=== PATIENT | female | born 1995 | race Caucasian/White ===

== ENCOUNTER 2021-02-19 14:30 | Outpatient (REF) | payer MEDICAID, SELFPAY ==
[2021-02-19 15:41] LABS: COVID-19 Test Negative (Negative)
== END 2021-02-19 14:31 | disposition home or self-care (01) ==
LOC: HO.LAB 14:30
PROVIDERS: Visit Provider Internal Medicine
DX: Z20.822 Contact with and (suspected) exposure to COVID-19 (principal)
CPT/HCPCS: 36415; 87635; C9803

== ENCOUNTER 2021-12-01 09:07 | Emergency (ER) | payer MEDICAID, SELFPAY ==
--- NOTE | ~2021-12-01 | XR_ITS ---
EXAMINATION: XR CHEST CLINICAL INFORMATION: Wheezing COMPARISON: 06/09/2020 TECHNIQUE: 2 views of the chest were obtained. FINDINGS: No significant abnormality is noted involving the heart, lungs, mediastinum, bony thorax or soft tissues. XR/XR chest 2V IMPRESSION: Unremarkable examination.
[2021-12-01 09:09] VITALS: BP 114/57; PULSE 82; RESP 16; TEMP 36.8; O2SAT 97; BMI 45.7
[2021-12-01 09:52] LABS: Appearance Urine HAZY; Color Urine STRAW; Glucose Urine UA NEG (NEG); Leukocyte Esterase Urine 2+ (NEG); Nitrite Urine NEG (NEG); UACC Culture Trigger YES; Urine Blood 3+ (NEG); Urine Ketones NEG (NEG); Urine Protein NEG (NEG-TRACE)
[2021-12-01 09:54] LABS: UPreg QC Valid YES; Urine Pregnancy NEGATIVE (NEGATIVE)
[2021-12-01 10:00] LABS: COVID-19 Test Negative (Negative); IDNOW Serial# 9DD0AD1C
[2021-12-01 10:02] LABS: Amorphous Sediment Urine 2+ /LPF; Bacteria Urine TRACE /LPF; Squamous Epithelial Cell Urine 3+ /LPF
--- NOTE | 2021-12-01 10:54 | ED_ITS ---
HPI - General Adult General Chief complaint: General Medical Stated complaint: Chest tightness Time Seen by Provider: 12/01/21 09:22 Source: patient Mode of arrival: ambulatory Limitations: no limitations History of Present Illness HPI narrative: 26-year-old female presenting to the ED with multiple complaints which include intermittent headaches, dry cough and chest tightness/wheezing since last night along with body aches. She also reports urinary discomfort for the past 3 days and she believe she might have a UTI. She reports that she had Trichomonas approximately 2 years and she is currently sexually active and she believes she might have Trichomonas at this time due to she is having yellow colored discharge and would like to be treated for Trichomonas. She denies thoughts of having gonorrhea or chlamydia and does not want to be treated for this. She denies any thoughts of . She denies any measured fevers, chills, dizziness, neck pain/stiffness, sore throat, loss of taste or smell, ear pain, trouble swallowing or breathing, chest pain, dyspnea on exertion, orthopnea, palpitations, nausea/vomiting/diarrhea constipation, black or bloody stools, hematuria, rashes, recent travel or sick contacts or any other symptoms complaints or concerns at this time. MD complaint: Multiple complaints Related Data Previous Rx's Medication Instructions Recorded albuterol sulfate 90 mcg/actuation 1 inh INHALATION QID PRN #8.5 g 12/01/21 aerosol inhaler benzonatate 100 mg capsule 100 mg PO BID PRN #14 cap 12/01/21 cefuroxime axetil 500 mg tablet 500 mg PO BID 7 Days #14 tab 12/01/21 metronidazole 500 mg tablet 2,000 mg PO ONCE 1 Days #4 tab 12/01/21 prednisone 20 mg tablet 40 mg PO DAILY 5 Days #10 tab 12/01/21 Allergies Allergy/AdvReac Type Severity Reaction Status Date / Time No Known Allergies Allergy Unverified 07/16/20 16:21 Review of Systems Verdana 4l Review of Systems: Verdana 4d Verdana 4d Constitutional : No Weight loss, No Fever, No Chills, No Night Sweats, No Fatigue, No Malaise ENT/Mouth : No Hearing loss, No Ear Pain, No Nasal Congestion, No Sinus Pain, No Hoarseness, No sore throat, No Rhinorrhea, No Swallowing DifficultyDifficulty Eyes: No Eye Pain, No Swelling, No Redness, No Foreign Body, No Discharge, No Vision Changes Cardiovascular : No Chest Pain, No SOB, No Dyspnea on Exertion, No Orthopnea, No Edema, No Palpitations Respiratory : Positive cough with chest tightness/wheezing, No Sputum, No Smoke Exposure, No Dyspnea Gastrointestinal : No Nausea, No Vomiting, No Diarrhea, No Constipation, No abdominal Pain, No Hematochezia, No Melena Genitourinary : Positive dysuria with urinary frequency/urgency, positive yellow colored vaginal discharge, no irregular bleeding, No Hematuria, No Urinary Incontinence, No Urgency, No Flank Pain, No Urinary Flow Changes, No Hesitancy Musculoskeletal : No joint pain, No Myalgias, No Joint Swelling Skin : No Skin Lesions, No rash Neuro : No Weakness, No Numbness, No Paresthesias, No Loss of Consciousness, No Dizziness, No Headache Psych : No Anxiety/Panic, No Depression, No SI/HI/AH/VH, No Social Issues, Heme/Lymph: No Bruising, No Bleeding,No Lymphadenopathy Endocrine : No Polyuria, No Polydipsia, No Temperature Intolerance Yes all other systems are reviewed and are negative [facility] Past Medical History Attestation statement: The following information was validated with the patient. Medical History No known health problems Social History Social History Advance Directives: No Advance Directives Information Provided: No Physical Exam Verdana 4l Vital Signs: Verdana 4d Verdana 4d Vital Signs: Verdana 4d Verdana 4Bd Last Vital Signs Verdana 4d Tanning Drum Operator New 4d Tanning Drum Operator New 4d Temp 98.3 F 12/01/21 09:09 Tanning Drum Operator New 4d Pulse 82 12/01/21 09:09 Tanning Drum Operator New 4d Resp 16 12/01/21 09:09 BP 114/57 L 12/01/21 09:09 Pulse Ox 97 12/01/21 09:09 BMI result Body Mass Index 45.7 vital signs have been reviewed as normal and appeared to be correct. Blood pressure normal. Heart rate normal. Respiration rate normal. Temperature normal. Oxygen saturation normal. Appearance: Alert. Oriented X3. No acute distress. Head: Normal external exam. Normocephalic. Atraumatic. Eyes: PERRLA. EOMI. Conjunctiva and sclera normal. Eyelids normal. ENT: EAC normal. TM's Normal. Pharynx normal. Uvula midline. Moist mucous membranes. No trismus noted. No drooling noted. No muffled voice noted. Neck: Normal inspection. Neck supple. FROM. No adenopathy. Thyroid Normal. No meningeal signs. No neck mass noted. CVS: Normal heart rate and rhythm. Heart sound normal. Pulses normal throughout. No murmurs/rales/gallops. Respiratory: Decreased breath sounds with inspiratory and expiratory wheezing throughout. Otherwise painless inspiration. No rales/rhonchi noted. Chest is nontender and no accessory muscle usage noted or tracheal tugging or stridor noted. Abdomen: Soft and nontender. Bowel sounds normal in all 4 quadrants. No distention noted. No organomegaly noted. No visible injury noted. Back: No CVA tenderness. Full range of motion noted. No rashes/lesion/induration/fluctuance or signs of infection noted. Skin: Skin warm and dry. Normal skin color. Normal skin turgor. No rashes/lesions/lacerations noted. Extremities: No lower extremity edema. No calf tenderness is noted. Extremities exhibit normal range of motion. Extremities nontender. Neuro: Oriented X 3. No motor deficit. No sensory deficit. Reflexes normal. Normal steady gait. No focal neuro deficits noted. Vascular: + radial pulses/+ 2 distal pedal pulses/+2 dorsalis pedis b/l. Normal cap refill. No cyanosis noted to upper extremity nails and lower extremity toes nails. Course Course Course Narrative: 26-year-old female presenting to the ED with multiple complaints which include intermittent headaches, dry cough and chest tightness/wheezing since last night along with body aches. She also reports urinary discomfort for the past 3 days and she believe she might have a UTI. She reports that she had Trichomonas approximately 2 years and she is currently sexually active and she believes she might have Trichomonas at this time due to she is having yellow colored discharge and would like to be treated for Trichomonas. She denies thoughts of having gonorrhea or chlamydia and does not want to be treated for this. Patient negative for COVID. Chest x-ray negative for any acute processes. UA revealed +2 leukocytes and 10-14 white blood cells she does have 3 epithelial cells although patient reports dysuria therefore will treat despite having negative nitrate for UTI. She has pending Trichomonas/yeast/bacterial vaginosis although will treat for Trichomonas. Gonorrhea and chlamydia are pending patient declining treatment for that. Will DC home with instructions to return if any new or worsening symptoms to follow up with primary care provider and we will call her if any positive results. Patient understands agrees with this plan. Medical Decision Making Medical Records Medical records reviewed: Yes I reviewed the patient's medical records. Lab Data Lab results reviewed: Yes I reviewed the patient's lab results. Labs: Lab Results 12/01/21 12/01/21 12/01/21 Range/Units 09:32 09:40 09:41 Urine Color STRAW Urine Appearance HAZY Urine pH 6.0 (5.0-8.0) Ur Specific Gully 1.020 (1.005-1.025) Urine Protein NEG (NEG-TRACE) MG/DL Urine Glucose (UA) NEG (NEG) MG/DL Urine Ketones NEG (NEG) MG/DL Urine Blood 3+ H (NEG) Urine Nitrite NEG (NEG) Ur Leukocyte Esterase 2+ H (NEG) Urine RBC 5-9 H (0) /HPF Urine WBC 10-14 H (0-4) /HPF Ur Squamous Epith Cells 3+ /LPF Amorphous Sediment 2+ /LPF Urine Bacteria TRACE /LPF Urine Test NEGATIVE (NEGATIVE) COVID-19 (TRACY) Negative (Negative) COVID-19 Clin Com See Note Imaging Data Chest x-ray: Attestation: I personally reviewed and interpreted this imaging study as follows: Radiologist's impression: FINDINGS: No significant abnormality is noted involving the heart, lungs, mediastinum, bony thorax or soft tissues. XR/XR chest 2V IMPRESSION: Unremarkable examination. Discharge Plan Discharge Clinical Impression: Acute bronchitis with bronchospasm, UTI (urinary tract infection), Trichomonas vaginitis, Diffuse wheezing Patient Disposition: Home, Self-Care Instructions: Trichomoniasis (ED), Urinary Tract Infection in Women (DC), How to Use a Metered-Dose Inhaler and a Spacer (ED) Additional Instructions: You have pending lab results if any are positive you will be contacted. Return if any new or worsening symptoms follow-up with your primary care provider. Follow up with [facility] as well. Prescriptions: New metronidazole 500 mg tablet 2,000 mg PO ONCE 1 Days Qty: 4 0RF Rx Instructions: administer both doses on the same day prednisone 20 mg tablet 40 mg PO DAILY 5 Days Qty: 10 0RF cefuroxime axetil 500 mg tablet 500 mg PO BID 7 Days Qty: 14 0RF benzonatate 100 mg capsule 100 mg PO BID PRN (Reason: cough) Qty: 14 0RF albuterol sulfate 90 mcg/actuation HFA aerosol inhaler 1 inh inhalation QID PRN (Reason: shortness of breath or wheezing) Qty: 8.5 0RF Referrals: [facility] [Primary Care Provider] - 2 days
[2021-12-01] MEDS: Albuterol Sulfate 90 MCG 8 GM INHALER 4 PUFF INHALE (11:03)
[2021-12-01 12:15] LABS: CT PCR NOT DETECTED (Not Detect.); NG PCR NOT DETECTED (Not Detect.)
[2021-12-02 08:47] LABS: BV Int Neg Control Negative (Negative); BV Int Pos Control Positive (Positive)
== END 2021-12-01 11:14 | disposition home or self-care (01) ==
PROVIDERS: Physician Assistant Medical; Emergency Provider Emergency Medicine Emergency Medical Services
DX: J20.8 Acute bronchitis due to other specified organisms (principal); N39.0 Urinary tract infection, site not specified; A59.01 Trichomonal vulvovaginitis; R07.89 Other chest pain; Z20.822 Contact with and (suspected) exposure to COVID-19; Z79.899 Other long term (current) drug therapy
CPT/HCPCS: 71046; 81001; 81025; 87086; 87480; 87491; 87510; 87591; 87635; 87660; 99283; 99284

== ENCOUNTER 2022-03-15 00:22 | Emergency (ER) | payer MEDICAID, SELFPAY ==
[2022-03-15 01:20] VITALS: BP 97/63; PULSE 101; RESP 18; TEMP 37.1; O2SAT 98; BMI 47.5
[2022-03-15 01:23] VITALS: BP 117/78; PULSE 100; O2SAT 100
--- NOTE | 2022-03-15 03:24 | PC.NURSE ---
Pt started to have another episode of vomiting in the waiting room. This RN medicated with zofran.
[2022-03-15] MEDS: Ondansetron ODT 4 MG TAB.RAPDIS TRANSLINGU (03:25)
--- NOTE | 2022-03-15 04:11 | PC.NURSE ---
Pt resting well, asked for some water. Alcides STANLEY gave pt a few sips of water and told her to wait until the doctor sees her before drinking more.
--- NOTE | 2022-03-15 05:11 | ED_ITS ---
HPI - Nausea/Vomiting/Diarrhea General Chief complaint: Nausea/Vomiting/Diarrhea Stated complaint: food poisoning Time Seen by Provider: 03/15/22 04:38 Source: patient Mode of arrival: EMS History of Present Illness HPI Narrative: 26-year-old female without significant past medical history arrives via ambulance after having eating rice and developed nausea and vomiting thereafter. Otherwise, she denies any recent fever, chills, sore throat, cough, shortness of breath or palpitations. Related Data Previous Rx's Medication Instructions Recorded albuterol sulfate 90 mcg/actuation 1 inh INHALATION QID PRN #8.5 g 12/01/21 aerosol inhaler benzonatate 100 mg capsule 100 mg PO BID PRN #14 cap 12/01/21 cefuroxime axetil 500 mg tablet 500 mg PO BID 7 Days #14 tab 12/01/21 metronidazole 500 mg tablet 2,000 mg PO ONCE 1 Days #4 tab 12/01/21 prednisone 20 mg tablet 40 mg PO DAILY 5 Days #10 tab 12/01/21 ondansetron 4 mg disintegrating 4 mg PO Q6H PRN #10 tab 03/15/22 tablet Allergies Allergy/AdvReac Type Severity Reaction Status Date / Time No Known Allergies Allergy Unverified 07/16/20 16:21 Review of Systems Review of Systems: Pertinent positives and negatives as stated in HPI 10 point review of systems is otherwise negative. PMFSH Past Medical History Source: nursing notes reviewed Medical History No known health problems Social History Social History Advance Directives: No Advance Directives Information Provided: No Physical Exam Vital Signs: Vital Signs: Last Vital Signs Temp 98.8 F 03/15/22 01:20 Pulse 101 H 03/15/22 01:20 Resp 18 03/15/22 01:20 BP 97/63 03/15/22 01:20 Pulse Ox 98 03/15/22 01:20 BMI result Body Mass Index 47.5 VITAL SIGNS: Reviewed. GENERAL: Well developed, well nourished, in no acute distress. HEAD: Normocephalic/atraumatic EYES: PERRLA, EOMI EARS: Ext canals without abnormality OROPHARYNX: no oral lesions noted, posterior pharynx clear LUNGS: Normal breath sounds. No adventitious sounds or accessory muscle use. SpO2<98> CARDIOVASCULAR: Regular rate and rhythm without noted murmurs ABDOMEN: Soft, non-tender, non-distended with bowel sounds. NEUROLOGIC: Alert and oriented x 4. Course Course Course Narrative: 26-year-old female with history and clinical presentation consistent with food poisoning, patient received Zofran and p.o. challenge. On re-evaluation the child is noted to tolerate fluids well and is discharged home in stable condition. Discharge Plan Discharge Clinical Impression: Food poisoning Patient Disposition: Home, Self-Care Instructions: Food Poisoning (ED) Additional Instructions: 1. Increase fluid hydration, especially with water. 2. You have been provided with a prescription for controlling nausea. 3. Follow-up with primary care provider next 2-3 days for re-evaluation. Return to the ER for worsening symptoms. Prescriptions: New ondansetron 4 mg tablet,disintegrating 4 mg PO Q6H PRN (Reason: nausea and vomiting) Qty: 10 0RF No Action metronidazole 500 mg tablet 2,000 mg PO ONCE 1 Days Qty: 4 0RF Rx Instructions: administer both doses on the same day prednisone 20 mg tablet 40 mg PO DAILY 5 Days Qty: 10 0RF cefuroxime axetil 500 mg tablet 500 mg PO BID 7 Days Qty: 14 0RF benzonatate 100 mg capsule 100 mg PO BID PRN (Reason: cough) Qty: 14 0RF albuterol sulfate 90 mcg/actuation HFA aerosol inhaler 1 inh inhalation QID PRN (Reason: shortness of breath or wheezing) Qty: 8.5 0RF Referrals: [facility] [Primary Care Provider] - Stand Alone Forms: Work/School Release
[2022-03-15 06:00] VITALS: BP 103/60; PULSE 88; RESP 16; TEMP 36.8; O2SAT 96
== END 2022-03-15 06:16 | disposition home or self-care (01) ==
PROVIDERS: Emergency Provider Student in an Organized Health Care Education/Training Program
DX: A05.9 Bacterial foodborne intoxication, unspecified (principal); R11.2 Nausea with vomiting, unspecified; Z79.899 Other long term (current) drug therapy
CPT/HCPCS: 99282; 99283

== ENCOUNTER 2023-02-19 22:38 | Emergency (ER) | payer MEDICAID, SELFPAY ==
--- NOTE | 2023-02-19 | ECG_ITS ---
Test Reason : CHEST PAIN Blood Pressure : / mmHG Vent. Rate : 073 BPM Atrial Rate : 073 BPM P-R Int : 134 ms QRS Dur : 072 ms QT Int : 386 ms P-R-T Axes : 035 019 025 degrees QTc Int : 425 ms Normal sinus rhythm with sinus arrhythmia Normal ECG When compared with ECG of 09-JUN-2020 15:06, No significant change was found Referred By: Generic ED Physician Electronically Signed By:Wes Olivia
[2023-02-19 22:41] VITALS: BP 110/52; PULSE 75; RESP 18; TEMP 36.5; O2SAT 100; BMI 49.4
[2023-02-19 23:03] LABS: MANUAL DIFF FLAG NO
[2023-02-19 23:05] LABS: Basophils Absolute Auto 0.1 X10*3/uL (0.0-0.2); Basophils Percent Auto 0.6 % (0-2); Eosinophils Percent Auto 0.2 % (0-4); Hemoglobin 13.8 g/dl (12.0-16.0); Imm Gran Abs Auto 0.03 X10*3/uL (0.00-0.03); Imm Gran Pct Auto 0.3 % (0.0-0.4); Lymphocytes Absolute Auto 1.7 X10*3/uL (1.2-4.9); Lymphocytes Percent Auto 17.7 % (20-40); Mean Corpuscular HGB Conc 32.9 g/dl (31.0-35.0); Mean Corpuscular Hemoglobin 28.3 pg (27.0-33.0); Mean Corpuscular Volume 86.1 fL (80.0-98.0); Mean Platelet Volume 9.1 fL (9.4-12.3); Monocytes Absolute Auto 0.5 X10*3/uL (0.1-1.2); Monocytes Percent Auto 5.2 % (2-11); Neutrophils Absolute Auto 7.4 x10*3/uL (2.0-8.3); Platelet Count 330 X10*3/uL (160-400); Red Blood Count 4.88 X10*6/uL (4.20-5.50); Red Cell Distribution Width 12.8 % (11.0-16.0); White Blood Count 9.7 X10*3/uL (4.8-10.8)
[2023-02-19 23:20] LABS: Alanine Aminotransferase 16 U/L (0-31); Albumin Level 3.7 g/dL (3.5-5.0); Alkaline Phosphatase 68 U/L (39-117); Anion Gap 16 (12-20); Aspartate Amino Transferase 21 U/L (5-31); Bilirubin Total 0.5 mg/dL (0.0-1.0); Blood Urea Nitrogen 9 mg/dL (9-16); Calcium 8.7 mg/dL (8.4-10.2); Carbon Dioxide 22 mmol/L (22-29); Chloride 109 mmol/L (96-108); Estimated Glomerular Filt Rate > 60; Glucose Random 84 mg/dL (60-115); Potassium 3.7 mmol/L (3.3-5.1); Sodium 143 mmol/L (135-145); Total Protein 7.2 g/dL (6.5-8.0)
[2023-02-19 23:28] LABS: Troponin-I High Sensitivity < 2.7 ng/L (<3.5-17.0)
[2023-02-19 23:40] LABS: Influenza A PCR NEGATIVE (Negative); Influenza B PCR NEGATIVE (Negative); Resp Syncy Virus RNA Qual PCR NEGATIVE (Negative); SARS COV2 PCR INHOUSE NEGATIVE (Negative)
--- NOTE | 2023-02-20 00:40 | ED_ITS ---
HPI - Nausea/Vomiting/Diarrhea General Chief complaint: Nausea/Vomiting/Diarrhea Stated complaint: chest pain/vomiting Time Seen by Provider: 02/20/23 00:33 Source: patient Mode of arrival: ambulatory Limitations: no limitations History of Present Illness HPI Narrative: Patient comes to emergency room complaining of 3 days of nausea vomiting, no diarrhea or abdominal pain. Patient states that her boyfriend had similar symptoms. Patient denies fever, complaining of chills, no URI or UTI symptoms. Related Data Previous Rx's Medication Instructions Recorded ondansetron 4 mg disintegrating 4 mg PO Q6H PRN nausea and 02/20/23 tablet vomiting #14 tabs Allergies Allergy/AdvReac Type Severity Reaction Status Date / Time No Known Allergies Allergy Verified 02/19/23 22:41 Review of Systems Review of Systems: Constitutional : No Weight loss, No Fever, No Chills, No Night Sweats, No Fatigue, No Malaise ENT/Mouth : No Hearing loss, No Ear Pain, No Nasal Congestion, No Sinus Pain, No Hoarseness, No sore throat, No Rhinorrhea, No Swallowing Difficulty Eyes: No Eye Pain, No Swelling, No Redness, No Foreign Body, No Discharge, No Vision Changes Cardiovascular : No Chest Pain, No SOB, No Dyspnea on Exertion, No Orthopnea, No Edema, No Palpitations Respiratory : No Cough, No Sputum, No Wheezing, No Smoke Exposure, No Dyspnea Gastrointestinal : Complaining of nausea and vomiting, No Diarrhea, No Constipation, No abdominal Pain, No Hematochezia, No Melena Genitourinary : no irregular bleeding, No Dysuria, No Urinary Frequency, No Hematuria, No Urinary Incontinence, No Urgency, No Flank Pain, No Urinary Flow Changes, No Hesitancy Musculoskeletal : No joint pain, No Myalgias, No Joint Swelling Skin : No Skin Lesions, No rash Neuro : No Weakness, No Numbness, No Paresthesias, No Loss of Consciousness, No Dizziness, No Headache Psych : No Anxiety/Panic, No Depression, No SI/HI/AH/VH, No Social Issues, Heme/Lymph: No Bruising, No Bleeding,No Lymphadenopathy Endocrine : No Polyuria, No Polydipsia, No Temperature Intolerance PMFSH Past Medical History Medical History No known health problems Family History Family History (Updated 06/03/22 @ 09:13 by Rachel Cabrera CMA) Mother Vertigo Father No problems noted. Daughter No problems noted. Daughter No problems noted. Son No problems noted. Social History Social History (Updated 06/03/22 @ 09:13 by Rachel Cabrera CMA) Alcohol intake: current Alcohol intake frequency: holidays/special occasions only Patient Tobacco Use Status: Never used Tobacco Advance Directives: No Advance Directives Information Provided: Yes Physical Exam Vital Signs: Vital Signs: Last Vital Signs Temp 97.7 F 02/19/23 22:41 Pulse 75 02/19/23 22:41 Resp 18 02/19/23 22:41 BP 110/52 L 02/19/23 22:41 Pulse Ox 100 02/19/23 22:41 O2 Del Method Room Air 02/19/23 22:41 BMI result Body Mass Index 49.4 Const: Other: Appearance: Alert. Oriented X3. No acute distress. Eyes: Pupils equal, round and reactive to light. ENT: Pharynx normal. Neck: Normal inspection. Neck supple. No lymph nodes noted. No crepitus CVS: Normal heart rate and rhythm. Pulses normal. Normal S1 and S2 Respiratory: No respiratory distress. Breath sounds normal. No Wheezing. No rales Abdomen: Soft and nontender. No rigidity. No distention. Skin: Skin warm and dry. Normal skin color. Normal skin turgor. Extremities: No lower extremity edema. No Lacerations. No Rash Neuro: Oriented X 3. No motor deficit. No sensory deficit. Moving all extremities. No slurred speech. CN 2 through 12 grossly intact Psych: calm, cooperative, normal affect Medical Decision Making Medical Decision Making [facility] Narrative: -CBC and chemistry did not show any acute abnormalities. -patient is eating IV fluids, Zofran and Pepcid. Differential Diagnosis Differential Diagnoses: The differential diagnosis associated with the presentation includes (Gastritis, gastroenteritis, peptic ulcer disease) Lab Data [facility] Lab Attestation statement: I reviewed the patient's lab results. 02/19/23 22:54 02/19/23 22:54 Labs: Lab Results 02/19/23 02/19/23 02/19/23 Range/Units 22:54 22:54 22:54 WBC 9.7 (4.8-10.8) X10*3/uL RBC 4.88 (4.20-5.50) X10*6/uL Hgb 13.8 (12.0-16.0) g/dl Hct 42.0 (37.0-47.0) % MCV 86.1 (80.0-98.0) fL MCH 28.3 (27.0-33.0) pg MCHC 32.9 (31.0-35.0) g/dl RDW 12.8 (11.0-16.0) % Plt Count 330 (160-400) X10*3/uL MPV 9.1 L (9.4-12.3) fL Immature Gran % (Auto) 0.3 (0.0-0.4) % Neut % (Auto) 76.0 H (45-73) % Lymph % (Auto) 17.7 L (20-40) % Millard % (Auto) 5.2 (2-11) % Eos % (Auto) 0.2 (0-4) % Baso % (Auto) 0.6 (0-2) % Lymph # (Auto) 1.7 (1.2-4.9) X10*3/uL Millard # (Auto) 0.5 (0.1-1.2) X10*3/uL Eos # (Auto) 0.0 (0.0-0.4) X10*3/uL Baso # (Auto) 0.1 (0.0-0.2) X10*3/uL Abs Immat Gran (auto) 0.03 (0.00-0.03) X10*3/uL Absolute Neuts (auto) 7.4 (2.0-8.3) x10*3/uL Absolute Nucleated RBC 0.000 (0.0-0.012) X10*3/uL Nucleated RBC % (auto) 0.0 (0.0-0.2) /100WBC Sodium 143 (135-145) mmol/L Potassium 3.7 (3.3-5.1) mmol/L Chloride 109 H (96-108) mmol/L Carbon Dioxide 22 (22-29) mmol/L Anion Gap 16 (12-20) BUN 9 (9-16) mg/dL Creatinine 0.68 (0.5-1.4) mg/dL Estim Creat Clear Calc 155.0 Estimated GFR > 60 Random Glucose 84 (60-115) mg/dL Calcium 8.7 (8.4-10.2) mg/dL Total Bilirubin 0.5 (0.0-1.0) mg/dL AST 21 (5-31) U/L ALT 16 (0-31) U/L Alkaline Phosphatase 68 (39-117) U/L Troponin I High Sens < 2.7 (<3.5-17.0) ng/L Total Protein 7.2 (6.5-8.0) g/dL Albumin 3.7 (3.5-5.0) g/dL Influenza Type A (PCR) (Negative) Influenza Type B (PCR) (Negative) RSV RNA Qual (PCR) (Negative) SARS-CoV-2 RNA (RT-PCR) (Negative) 02/19/23 Range/Units 22:54 WBC (4.8-10.8) X10*3/uL RBC (4.20-5.50) X10*6/uL Hgb (12.0-16.0) g/dl Hct (37.0-47.0) % MCV (80.0-98.0) fL MCH (27.0-33.0) pg MCHC (31.0-35.0) g/dl RDW (11.0-16.0) % Plt Count (160-400) X10*3/uL MPV (9.4-12.3) fL Immature Gran % (Auto) (0.0-0.4) % Neut % (Auto) (45-73) % Lymph % (Auto) (20-40) % Millard % (Auto) (2-11) % Eos % (Auto) (0-4) % Baso % (Auto) (0-2) % Lymph # (Auto) (1.2-4.9) X10*3/uL Millard # (Auto) (0.1-1.2) X10*3/uL Eos # (Auto) (0.0-0.4) X10*3/uL Baso # (Auto) (0.0-0.2) X10*3/uL Abs Immat Gran (auto) (0.00-0.03) X10*3/uL Absolute Neuts (auto) (2.0-8.3) x10*3/uL Absolute Nucleated RBC (0.0-0.012) X10*3/uL Nucleated RBC % (auto) (0.0-0.2) /100WBC Sodium (135-145) mmol/L Potassium (3.3-5.1) mmol/L Chloride (96-108) mmol/L Carbon Dioxide (22-29) mmol/L Anion Gap (12-20) BUN (9-16) mg/dL Creatinine (0.5-1.4) mg/dL Estim Creat Clear Calc Estimated GFR Random Glucose (60-115) mg/dL Calcium (8.4-10.2) mg/dL Total Bilirubin (0.0-1.0) mg/dL AST (5-31) U/L ALT (0-31) U/L Alkaline Phosphatase (39-117) U/L Troponin I High Sens (<3.5-17.0) ng/L Total Protein (6.5-8.0) g/dL Albumin (3.5-5.0) g/dL Influenza Type A (PCR) NEGATIVE (Negative) Influenza Type B (PCR) NEGATIVE (Negative) RSV RNA Qual (PCR) NEGATIVE (Negative) SARS-CoV-2 RNA (RT-PCR) NEGATIVE (Negative) Discharge Plan Discharge Clinical Impression: Nausea & vomiting Patient Disposition: Home, Self-Care Instructions: Acute Nausea and Vomiting (ED) Additional Instructions: Please follow-up with your primary care physician tomorrow. If you have any worsening or new symptoms, please return to the emergency room or call 911 Prescriptions: New ondansetron 4 mg tablet,disintegrating 4 mg PO Q6H PRN (Reason: nausea and vomiting) Qty: 14 0RF
[2023-02-20 00:53] LABS: Lipase 25 U/L (8-78)
[2023-02-20 00:55] LABS: HCG Quantitative < 2 mIU/mL
[2023-02-20] MEDS: Famotidine/PF 20 MG/2 ML VIAL IVPUSH (01:04)
[2023-02-20] MEDS: ondansetron HCL 4 MG/2 ML VIAL IVPUSH (01:04)
[2023-02-20] MEDS: 0.9 % Sodium Chloride 1,000 ML 999 ML IVCONT (01:04)
[2023-02-20 01:19] VITALS: BP 99/58; PULSE 62; RESP 18; O2SAT 97
== END 2023-02-20 02:03 | disposition home or self-care (01) ==
PROVIDERS: Emergency Provider Emergency Medicine; PCP Nurse Practitioner
DX: R11.2 Nausea with vomiting, unspecified (principal); Z20.822 Contact with and (suspected) exposure to COVID-19; Z20.828 Contact with and (suspected) exposure to other viral communicable diseases
CPT/HCPCS: 0241U; 36415; 80053; 83690; 84484; 84702; 85025; 93005; 96374; 96375; 99284; 99285; J2405

== ENCOUNTER 2023-06-02 09:06 | Outpatient (REF) | payer MEDICAID, SELFPAY ==
[2023-06-05 16:19] LABS: TS Negative Control Passed; TS Panel A 0; TS Panel B 0; TS Positive Control Passed; TSpotTB Negative (Negative)
== END 2023-06-02 09:07 | disposition home or self-care (01) ==
LOC: HO.HHCL 09:06
PROVIDERS: Visit Provider Nurse Practitioner Family
DX: Z00.00 Encounter for general adult medical examination without abnormal findings (principal); Z11.1 Encounter for screening for respiratory tuberculosis
CPT/HCPCS: 36415; 86481

== ENCOUNTER 2023-06-22 14:51 | Outpatient (REF) | payer MEDICAID, SELFPAY ==
[2023-06-22 16:20] LABS: Estimated Average Glucose 97 mg/dL
[2023-06-22 16:25] LABS: Alanine Aminotransferase 13 U/L (0-31); Albumin Level 3.5 g/dL (3.5-5.0); Alkaline Phosphatase 58 U/L (39-117); Anion Gap 9 (12-20); Aspartate Amino Transferase 17 U/L (5-31); Bilirubin Total 0.3 mg/dL (0.0-1.0); Blood Urea Nitrogen 12 mg/dL (9-16); Calcium 8.9 mg/dL (8.4-10.2); Carbon Dioxide 24 mmol/L (22-29); Chloride 109 mmol/L (96-108); Cholesterol 175 mg/dL (<200); Estimated Glomerular Filt Rate > 60; Glucose Random 83 mg/dL (60-115); HDL Cholesterol 35 mg/dL (>40); LDL Cholesterol Calculated 117 mg/dL (<100); Potassium 3.9 mmol/L (3.3-5.1); Sodium 138 mmol/L (135-145); Total Protein 7.2 g/dL (6.5-8.0); Triglycerides 119 mg/dL (<150)
== END 2023-06-22 14:52 | disposition home or self-care (01) ==
LOC: HO.HHCL 14:51
PROVIDERS: Visit Provider Nurse Practitioner Family
DX: Z00.00 Encounter for general adult medical examination without abnormal findings (principal); Z68.43 Body mass index [BMI] 50.0-59.9, adult
CPT/HCPCS: 36415; 80053; 80061; 83036

== ENCOUNTER 2023-07-17 18:51 | Outpatient (REF) | payer MEDICAID, SELFPAY ==
[2023-07-17 19:39] LABS: Influenza A PCR NEGATIVE (Negative); Influenza B PCR NEGATIVE (Negative); Resp Syncy Virus RNA Qual PCR NEGATIVE (Negative); SARS COV2 PCR INHOUSE NEGATIVE (Negative)
== END 2023-07-17 18:52 | disposition home or self-care (01) ==
LOC: HO.HHCLNP 18:51
PROVIDERS: Visit Provider Internal Medicine
DX: J06.9 Acute upper respiratory infection, unspecified (principal); Z20.822 Contact with and (suspected) exposure to COVID-19
CPT/HCPCS: 0241U

== ENCOUNTER 2023-08-02 18:02 | Outpatient (REF) | payer MEDICAID, SELFPAY ==
[2023-08-02 19:09] LABS: Influenza A PCR NEGATIVE (Negative); Influenza B PCR NEGATIVE (Negative); Resp Syncy Virus RNA Qual PCR NEGATIVE (Negative); SARS COV2 PCR INHOUSE NEGATIVE (Negative)
== END 2023-08-02 18:03 | disposition home or self-care (01) ==
LOC: HO.HHCLNP 18:02
PROVIDERS: Visit Provider Internal Medicine Geriatric Medicine
DX: J06.9 Acute upper respiratory infection, unspecified (principal)
CPT/HCPCS: 0241U; 87070

== ENCOUNTER 2023-12-07 09:59 | Outpatient (REF) | payer MEDICAID, SELFPAY ==
[2023-12-07 12:26] LABS: TSH reflex Free T4 1.11 uIU/mL (0.32-4.0)
[2023-12-07 18:18] LABS: CT PCR NOT DETECTED (Not Detect.); NG PCR NOT DETECTED (Not Detect.)
== END 2023-12-07 10:00 | disposition home or self-care (01) ==
LOC: HO.HHCL 09:59
PROVIDERS: Visit Provider Advanced Practice Midwife
DX: Z11.3 Encounter for screening for infections with a predominantly sexual mode of transmission (principal); N92.6 Irregular menstruation, unspecified
CPT/HCPCS: 0353U; 36415; 84443

== ENCOUNTER 2024-01-03 17:57 | Outpatient (REF) | payer MEDICAID, SELFPAY ==
[2024-01-04 16:44] LABS: C. trachomatis RNA TMA NOT DETECTED (NOT DETECTED); N. gonorrhoeae RNA TMA NOT DETECTED (NOT DETECTED)
== END 2024-01-03 17:58 | disposition home or self-care (01) ==
LOC: HO.HHCLNP 17:57
PROVIDERS: Visit Provider Nurse Practitioner Family
DX: N89.8 Other specified noninflammatory disorders of vagina (principal)
CPT/HCPCS: 36415; 81513; 87491; 87591

== ENCOUNTER 2024-06-25 08:40 | Outpatient (REF) | payer MEDICAID, SELFPAY ==
[2024-06-25 11:28] LABS: MANUAL DIFF FLAG NO
[2024-06-25 11:34] LABS: Basophils Absolute Auto 0.1 X10*3/uL (0.0-0.2); Basophils Percent Auto 0.9 % (0-2); Eosinophils Absolute Auto 0.3 X10*3/uL (0.0-0.4); Hematocrit 38.5 % (37.0-47.0); Hemoglobin 12.8 g/dl (12.0-16.0); Imm Gran Abs Auto 0.01 X10*3/uL (0.00-0.03); Imm Gran Pct Auto 0.2 % (0.0-0.4); Lymphocytes Absolute Auto 2.2 X10*3/uL (1.2-4.9); Lymphocytes Percent Auto 38.6 % (20-40); Mean Corpuscular HGB Conc 33.2 g/dl (31.0-35.0); Mean Corpuscular Hemoglobin 29.1 pg (27.0-33.0); Mean Corpuscular Volume 87.5 fL (80.0-98.0); Mean Platelet Volume 9.7 fL (9.4-12.3); Monocytes Absolute Auto 0.6 X10*3/uL (0.1-1.2); Monocytes Percent Auto 9.6 % (2-11); Neutrophils Absolute Auto 2.6 x10*3/uL (2.0-8.3); Neutrophils Percent Auto 45.7 % (45-73); Platelet Count 286 X10*3/uL (160-400); Red Cell Distribution Width 12.7 % (11.0-16.0); White Blood Count 5.8 X10*3/uL (4.8-10.8)
[2024-06-25 12:05] LABS: Alanine Aminotransferase 15 U/L (0-31); Albumin Level 3.4 g/dL (3.5-5.0); Alkaline Phosphatase 61 U/L (39-117); Anion Gap 10 (12-20); Aspartate Amino Transferase 22 U/L (5-31); Bilirubin Total 0.4 mg/dL (0.0-1.0); Blood Urea Nitrogen 9 mg/dL (9-16); Calcium 8.8 mg/dL (8.4-10.2); Carbon Dioxide 24 mmol/L (22-29); Chloride 109 mmol/L (96-108); Cholesterol 177 mg/dL (<200); Estimated Glomerular Filt Rate > 60; Glucose Random 82 mg/dL (60-115); HDL Cholesterol 35 mg/dL (>40); LDL Cholesterol Calculated 126 mg/dL (<100); Potassium 3.6 mmol/L (3.3-5.1); Sodium 139 mmol/L (135-145); Total Protein 6.9 g/dL (6.5-8.0); Triglycerides 80 mg/dL (<150)
[2024-06-25 12:08] LABS: Thyroid Stimulating Hormone 0.89 uIU/mL (0.32-4.0)
[2024-06-26 22:09] LABS: RPR Rapid Plasma Reagin NON-REACTIVE (NON-REACTIVE)
[2024-06-28 17:39] LABS: HIV RNA PCR Qn Copies Not Detected Copies/mL; HIV RNA PCR Qn Log Copies Not Detected Log cps/mL
== END 2024-06-25 08:41 | disposition home or self-care (01) ==
LOC: HO.HHCL 08:40
PROVIDERS: Visit Provider Nurse Practitioner Family
DX: Z00.00 Encounter for general adult medical examination without abnormal findings (principal); R42 Dizziness and giddiness; E66.01 Morbid (severe) obesity due to excess calories
CPT/HCPCS: 36415; 80053; 80061; 84443; 85025; 86592; 87536; 87900

== ENCOUNTER 2024-11-01 11:34 | Outpatient (REF) | payer MEDICAID, SELFPAY ==
[2024-11-01 13:22] LABS: Estimated Average Glucose 100 mg/dL; Hemoglobin A1C 108.9846 umol/L; Hemoglobin A1c % 5.1 % (<6.0); Total Hemoglobin (HGBA1C) 3407.2844 umol/L
[2024-11-01 13:43] LABS: Alanine Aminotransferase 12 U/L (0-31); Albumin Level 3.5 g/dL (3.5-5.0); Alkaline Phosphatase 56 U/L (39-117); Anion Gap 7 (12-20); Aspartate Amino Transferase 25 U/L (5-31); Bilirubin Total 0.3 mg/dL (0.0-1.0); Blood Urea Nitrogen 10 mg/dL (9-16); Calcium 8.4 mg/dL (8.4-10.2); Carbon Dioxide 23 mmol/L (22-29); Chloride 111 mmol/L (96-108); Estimated Glomerular Filt Rate > 60; Glucose Random 86 mg/dL (60-115); Potassium 4.1 mmol/L (3.3-5.1); Sodium 137 mmol/L (135-145); Total Protein 7.2 g/dL (6.5-8.0)
[2024-11-02 04:26] LABS: HIV AB/AG Nonreactive (Nonreactive); HIV Num 1 0.05 S/CO (0.00-0.99); ~HepC Num1 0.24 S/CO (0.00-0.79); ~Hepatitis C Antibody Nonreactive (Nonreactive)
== END 2024-11-01 11:35 | disposition home or self-care (01) ==
LOC: HO.HHCL 11:34
PROVIDERS: Visit Provider Nurse Practitioner
DX: E66.01 Morbid (severe) obesity due to excess calories (principal)
CPT/HCPCS: 36415; 80053; 83036; 86803; 87389

== ENCOUNTER 2025-05-01 15:26 | Outpatient (REF) | payer MEDICAID, SELFPAY ==
--- OUTSIDE RECORDS SUMMARY | 2025-05-01 15:28 | XMS_ITS | Encounter Summary ---
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 Name Role Phone Unavailable Primary Care Provider Unavailabl e Encounter Details Date Type Department Care Team (Late st Contact Info) Description 05/09/2022 Dental Inter[facility] [address] [place] [id number] Mago Harrell, MICHELLE [address] [place] [address] Social History Tobacco Use Types Packs/Day Years Used Date Smoking Tobacco: Never Assessed Social Connections Answer Date Recorded Social Connections and Isolation 0 05/09/2022 Financial Resource Strain Answer Date R ecorded Financial Resource Strain 0 2021 Stress Answer Date Recorded Stress 0 05/09/2022 Physical Activity Answer Date Recorded Physical Activity 0 05/09/2022 Food Insecurity Answer Date Recorded Food 0 05/09/2022 Transportation Needs Answer Date Record ed Transportation 0 05/09/2022 Housing Stability Answer Date Recorded Housing 0 05/09/2022 Safety and Environment Answer Date Son rded Safety 0 05/09/2022 Utilities Answer Date Recorded Utilities 0 05/09/2022 Employment Answer Date Recorded Employment 0 05/09/2022 Comments Unknown Sex and Gender Information Value Date Recorded Sex Assigned at Female 05/27/2024 10:17 AM PDT Legal Sex Female 1:08 PM PDT Gender Identity Female 05/27/2024 10:17 AM PDT Sexual Orientation Straight 05/27/2024 10 :17 AM PDT documented as of this encounter Plan of Treatment Not on file documented as of this encounter Visit Diagnoses Not on filedocumented in this encounter
--- OUTSIDE RECORDS SUMMARY | 2025-05-01 15:28 | XMS_ITS | Clinical Summary ---
Author Organization [facility] Address [address] [place] [address] Phone Care Team Providers Care Top Lift Compresser Name Role Phone Unavailable Primary Care Provider Unavailabl e Social History Tobacco Use Types Packs/Day Years Used Date Smoking Tobacco: Never Assessed Comments Unknown Sex and Gender Information Value Date Recorded Sex Assigned at Not on file Legal Sex Female 1:51 PM EST Gender Identity Not on file Sexual Orientation Not on file Plan of Treatment Health Maintenance Due Date Last Done Comments DTaP,Tdap,and Td Vaccines (1 - Tdap) 2014 Hepatitis B Vaccines (1 of 3 - 19+ 3-dose series) 2014 Cervical Cancer Screening: P ap Smear 2016 COVID-19 Vaccine ( - 2023-2 5 season) 2024 Influenza Vaccine (#1) 2025 HIB Vaccines Aged Out No longer eligi ble based on patient's age to complete this topic HPV Vaccines Aged Out No longer eligi ble based on patient's age to complete this topic Hepatitis A Vaccines Aged Out No long er eligible based on patient's age to complete this topic IPV Vaccines Aged Out No longer eligi ble based on patient's age to complete this topic MMR Vaccines Aged Out No longer eligi ble based on patient's age to complete this topic Meningococcal ACWY Vaccine Aged Out N o longer eligible based on patient's age to complete this topic Meningococcal B Vaccine Aged Out No l onger eligible based on patient's age to complete this topic Pneumococcal Vaccine: Pediat rics (0 to 5 Years) and At-Risk Patients (6 to 64 Years) Aged Out No longer eligible b ased on patient's age to complete this topic RSV Immunization Patients Un dorys 20 months Aged Out No longer eligible b ased on patient's age to complete this topic Varicella Vaccines Aged Out No longer eligible based on patient's age to complete this topic
--- OUTSIDE RECORDS SUMMARY | 2025-05-01 15:28 | XMS_ITS | Encounter Summary ---
Author Organization [facility] Address [address] [place] [address] Phone Care Team Providers Care Track Laying Equipment Operator Name Role Phone Unavailable Primary Care Provider Unavailabl e Encounter Details Date Type Department Care Team (Late st Contact Info) Description 06/15/2017 Conversion Encounter [facility] - [address] [address] Social History Tobacco Use Types Packs/Day Years Used Date Smoking Tobacco: Never Assessed Comments Unknown Sex and Gender Information Value Date Recorded Sex Assigned at Not on file Legal Sex Female 4:16 PM EDT Gender Identity Not on file Sexual Orientation Not on file documented as of this encounter Plan of Treatment Not on file documented as of this encounter Visit Diagnoses Not on filedocumented in this encounter
--- OUTSIDE RECORDS SUMMARY | 2025-05-01 15:28 | XMS_ITS | Encounter Summary ---
Author Organization [facility] Address [address] [facility] 7t [place] [address] Care Team Providers Care Preschool Teacher Aide Name Role Phone Nneka Velazquez NP Primary Care Provider [phone] Encounter Details Date Type Department Care Team ([facility] st Contact Info) Description 01/20/2025 Orders Only [facility] [address] [place] [address] Nneka Velazquez NP [address] [place] [address] Morbid obesity (CMS/HCC) (Primary Dx) Social History Tobacco Use Types Packs/Day Years Used Date Smoking Tobacco: Never Passive Smoke Exposure: Never Smokeless Tobacco: Never Alcohol Use Standard Drinks/Week Comments Yes 0 (1 standard drink = 0.6 oz pur e alcohol) last drink was 6 months ago Depression Answer Date Recorded Patient Health Questionnaire-9 Score 3 11/01/2024 Patient Health Questionnaire-9 Score 3 11/01/2024 Last PHQ-9: Questionnaire Data Not on file 0 11/01/2024 Housing Stability Answer Date Recorded What is your housing situation today? I have [place] 09/04/[address] you li ve. Do you have problems with any of the following? None of the above 09/04/2023 Food Insecurity Answer Date Recorded Within the past 12 months, y ou worried that your food would run out before you got money to buy more: Never True 09/04/2023 Within the past 12 months,th e food you bought just didn't last and you didn't have enough money to get more: Never True 03/2023 Transportation Answer Date Recorded In the past 12 months, has l ack of transportation kept you from medical appts, meetings, work or from getting things needed for daily living? No 09/04/2023 Utilities Answer Date Recorded In the past 12 months, has t he electric, gas, oil or water company threatened to shut off services in your home? No 09/04/2023 Depression Answer Date Recorded Patient Health Questionnaire-2 Score 0 11/01/2024 Internet Access Answer Date Recorded Internet Access Q1 Yes 06/28/2024 Internet Access Q2 Not on file 06/28/2024 Comments No Sex and Gender Information Value Date Recorded Sex Assigned at Female 08/29/2022 10:15 AM EDT Legal Sex Female 10:15 AM EDT Gender Identity Female 08/29/2022 10:15 AM EDT Sexual Orientation Straight 08/29/2022 10 :15 AM EDT documented as of this encounter Plan of Treatment Upcoming Encounters Date Type Department Care Team (Late st Contact Info) Description 06/04/2025 9:45 AM EDT Office Visit [facility] [address] [place] [address] Nneka Velazquez NP [address] [place] [address] documented as of this encounter Visit Diagnoses Diagnosis Morbid obesity (CMS/HCC)- Primary Morbid obesity documented in this encounter Additional Health Concerns Assessment Noted Time PHQ-9 Depression Total Score: 3 11/01/19 25 11:27 AM EST documented as of this encounter Care Teams Preschool Teacher Aide Relationship Specialty Start Date End Date Nneka Velazquez NP [address] [place] [address] PCP - General Family Medicine 07/02/24 documented as of this encounter
[2025-05-05 01:27] LABS: TS Negative Control Passed; TS Panel A 0; TS Panel B 0; TS Positive Control Passed; TSpotTB Negative (Negative)
== END 2025-05-01 15:27 | disposition home or self-care (01) ==
LOC: HO.HHCL 15:26
PROVIDERS: PCP Nurse Practitioner; Visit Provider Nurse Practitioner
DX: Z11.1 Encounter for screening for respiratory tuberculosis (principal)
CPT/HCPCS: 36415; 86481

== ENCOUNTER 2025-06-04 11:11 | Outpatient (REF) | payer MEDICAID, SELFPAY ==
--- OUTSIDE RECORDS SUMMARY | 2025-06-04 12:00 | XMS_ITS | Clinical Summary ---
Author Organization [facility] Address [address] [place] [address] Phone Care Team Providers Care Punch Press Feeder Name Role Phone Unavailable Primary Care Provider [...] Vaccine ( - 2023-2 5 season) 2024 Depression Screening 10/30/2024 Influenza Vaccine (#1) 2025 HIB Vaccines Aged [...] 5 Years) and At-Risk Patients (6 to 49 Years) Aged Out No longer eligible b ased on patient's age to complete this topic RSV Immunization Patients Un dorys 20 months Aged Out No longer eligible b ased on patient's age to complete this topic Varicella Vaccines Aged Out No longer eligible based on patient's age to complete this topic
--- OUTSIDE RECORDS SUMMARY | 2025-06-04 12:00 | XMS_ITS | Encounter Summary ---
Author Organization [facility] Address [address] [place] [address] Care Team Providers Care Academic Affairs Dean Name Role Phone Unavailable Primary Care Provider Unavailabl e Encounter Details Date Type Department Care Team (Late st Contact Info) Description 05/09/2022 Dental Interim Note [facility] [address] [place] [phone] Mago Harrell, MICHELLE [address] [place] [address] Social History Tobacco Use Types Packs/Day Years [...]
--- OUTSIDE RECORDS SUMMARY | 2025-06-04 12:00 | XMS_ITS | Encounter Summary ---
Author Organization [facility] Address [address] [facility] 7t [place] [address] Care Team Providers Care Assembler Trim Name Role Phone Nneka Velazquez NP Primary Care Provider [phone] Encounter Details Date Type Department Care Team ([facility] st Contact Info) Description 01/20/2025 Orders Only [facility] [address] [place] [address] Nneka Velazquez NP [address] [place] [address] Morbid obesity (CMS/HCC) (Primary Dx) Social History [...] Care Team (Late st Contact Info) Description 06/16/2025 1:30 PM EDT Procedure Visit [facility] [address] [place] [address] Nneka Velazquez NP [address] [place] [address] documented as of this encounter Visit Diagnoses Diagnosis Morbid obesity (CMS/HCC)- Primary Morbid obesity documented in this encounter Additional Health Concerns Assessment Noted Time PHQ-9 Depression Total Score: 3 11/01/19 25 11:27 AM EST documented as of this encounter Care Teams Assembler Trim Relationship Specialty Start Date End Date Nneka Velazquez NP [address] [place] [address] PCP - General Family Medicine 07/02/24 documented as of this encounter
--- OUTSIDE RECORDS SUMMARY | 2025-06-04 12:00 | XMS_ITS | Encounter Summary ---
Author Organization [facility] Address [address] [place] [address] Phone Care Team Providers Care Workday Senior Associate Name Role Phone Unavailable Primary Care Provider Unavailabl e Encounter Details Date Type Department Care Team (Late st Contact Info) Description 06/15/2017 Conversion Encounter [facility] - [address] [address] Social History Tobacco Use Types Packs/Day Years [...]
[2025-06-04 13:57] LABS: Cholesterol 181 mg/dL (<200); HDL Cholesterol 35 mg/dL (>40); Triglycerides 81 mg/dL (<150)
== END 2025-06-04 11:12 | disposition home or self-care (01) ==
LOC: HO.HHCL 11:11
PROVIDERS: PCP Nurse Practitioner; Visit Provider Nurse Practitioner
DX: E78.00 Pure hypercholesterolemia, unspecified (principal); E66.01 Morbid (severe) obesity due to excess calories
CPT/HCPCS: 36415; 80061

== ENCOUNTER 2025-06-11 17:22 | Outpatient (REF) | payer MEDICAID, SELFPAY ==
--- OUTSIDE RECORDS SUMMARY | 2025-06-11 17:24 | XMS_ITS | Encounter Summary ---
Author Organization [facility] Address [address] [facility] 7t [place] [address] Care Team Providers Care Jig And Fixture Maker Name Role Phone Nneka Velazquez NP Primary Care Provider [phone] Encounter Details Date Type Department Care Team ([facility] st Contact Info) Description 01/20/2025 Orders Only [facility] [address] [place] [address] Nneka Velazquez NP [address] [place] [address] Morbid obesity (CMS/HCC) (Primary Dx) Social History [...] Description 06/16/2025 1:30 PM EDT Procedure Visit [facility] [address] [place] [address] Nneka Velazquez NP [address] [place] [address] documented as of this encounter Visit Diagnoses Diagnosis Morbid obesity (CMS/HCC)- Primary Morbid obesity documented in this encounter Additional Health Concerns Assessment Noted Time PHQ-9 Depression Total Score: 3 11/01/19 25 11:27 AM EST documented as of this encounter Care Teams Jig And Fixture Maker Relationship Specialty Start Date End Date Nneka Velazquez NP [address] [place] [address] PCP - General Family Medicine 07/02/24 documented as of this encounter
--- OUTSIDE RECORDS SUMMARY | 2025-06-11 17:24 | XMS_ITS | Clinical Summary ---
Author Organization [facility] Address [address] [place] [address] Phone Care Team Providers Care Industrial Property Appraiser Name Role Phone Unavailable Primary Care Provider [...]
--- OUTSIDE RECORDS SUMMARY | 2025-06-11 17:24 | XMS_ITS | Encounter Summary ---
Author Organization [facility] Address [address] [place] [address] Care Team Providers Care Mender Knit Goods Name Role Phone Unavailable Primary Care Provider Unavailabl e Encounter Details Date Type Department Care Team (Late st Contact Info) Description 05/09/2022 Dental Interim Note [facility] [address] [place] [phone] Mago Harrell, MICHELLE [address] [place] [address] Social History Tobacco Use Types Packs/Day Years [...]
--- OUTSIDE RECORDS SUMMARY | 2025-06-11 17:24 | XMS_ITS | Encounter Summary ---
Author Organization [facility] Address [address] [place] [address] Phone Care Team Providers Care Online Education Manager Name Role Phone Unavailable Primary Care Provider Unavailabl e Encounter Details Date Type Department Care Team (Late st Contact Info) Description 06/15/2017 Conversion Encounter [facility] - [address] [address] Social History Tobacco Use Types Packs/Day Years [...]
== END 2025-06-11 17:23 | disposition home or self-care (01) ==
LOC: HO.HHCLNP 17:22
PROVIDERS: Visit Provider Internal Medicine
DX: R30.9 Painful micturition, unspecified (principal)
CPT/HCPCS: 87086; 87088; 87186

== ENCOUNTER 2025-06-16 18:35 | Outpatient (REF) | payer MEDICAID, SELFPAY ==
[2025-06-16 21:51] LABS: CT PCR NOT DETECTED (Not Detect.); NG PCR NOT DETECTED (Not Detect.)
[2025-06-17 15:36] LABS: Bacterial Vaginosis PCR NEGATIVE (Negative); Candida Group PCR NOT DETECTED (Not Detect); Candida glab krusei PCR NOT DETECTED (Not Detect); Trichomonas vaginalis PCR NOT DETECTED (Not Detect)
== END 2025-06-16 18:36 | disposition home or self-care (01) ==
LOC: HO.HHCLNP 18:35
PROVIDERS: Visit Provider Nurse Practitioner
DX: Z30.430 Encounter for insertion of intrauterine contraceptive device (principal)
CPT/HCPCS: 81515; 87491; 87591

== ENCOUNTER 2025-07-30 19:39 | Outpatient (REF) | payer MEDICAID, SELFPAY ==
--- OUTSIDE RECORDS SUMMARY | 2025-07-30 19:42 | XMS_ITS | Clinical Summary ---
Author Organization [facility] Address [address] [place] [address] Phone Care Team Providers Care Civil Service Clerk Name Role Phone Unavailable Primary Care Provider Unavailabl e Immunizations Immunization Administration Dates Next Due DTP 12/19/1996,1995,1995 ,1995 DTaP 5 03/13/2000 Hep B, ped/adol 1995,1995,1995 Hib (PRP-T) 08/08/1996,1995,1995 ,1995 IPV 03/13/2000 MMR 12/12/2006,03/13/2000,05/03/1996 OPV 1995,1995,1995 Tdap 11/17/2006 Varicella 07/23/1998 Family History Relation Name Status Comments Brother Alive Brother: Alive and well, ADD/ADHD Mother Alive Mother: Rheumat oid arthritis Social History Tobacco Use Types Packs/Day Years Used Date Smoking Tobacco: Never Assessed Comments Unknown Sex and Gender Information Value Date Recorded Sex Assigned at Not on file Legal Sex Female 4:16 PM EDT Gender Identity Not on file Sexual Orientation Not on file Plan of Treatment Health Maintenance Due Date Last Done Comments Varicella Vaccines (2 of 2 - 2-dose childhood series) 01/09/2007 07/23/1998 DTaP,Tdap,and Td Vaccines (7 - Td or Tdap) 11/17/2016 11/17/2006, 03/13/2000, 12/19/1996, Additional history exists HPV Vaccines (1 - 3-dose SCDM series) 2022 Influenza Vaccines (#1) 2025 COVID-19 Vaccine ( season) 2025 Hepatitis B Vaccines Completed 1995, 1995, 1995 HIB Vaccines Completed 08/08/1996, 02/1996, 1995, Additional history exists IPV Vaccines Completed 03/13/2000, 02/1996, 1995, Additional history exists MMR Vaccines Completed 12/12/2006, 02/27, 05/03/1996 Hepatitis A Vaccines Aged Out No long er eligible based on patient's age to complete this topic Men B Vaccine Aged Out No longer elig ible based on patient's age to complete this topic Meningococcal Vaccine Aged Out No rachael minda eligible based on patient's age to complete this topic Pneumococcal Vaccine Aged Out No long er eligible based on patient's age to complete this topic
--- OUTSIDE RECORDS SUMMARY | 2025-07-30 19:42 | XMS_ITS | Encounter Summary ---
Author Organization [facility] Address [address] [place] [address] Care Team Providers Care Ultrasonic Welding Machine Operator Name Role Phone Unavailable Primary Care Provider Unavailabl e Encounter Details Date Type Department Care Team (Late st Contact Info) Description 05/09/2022 Dental Interim Note [facility] [address] [place] [phone] Mago Harrell, MICHELLE [address] [place] [address] Social History Tobacco Use Types Packs/Day Years [...]
--- OUTSIDE RECORDS SUMMARY | 2025-07-30 19:42 | XMS_ITS | Encounter Summary ---
Author Organization [facility] Address [address] [place] [address] Care Team Providers Care Six Horse Hitch Driver Name Role Phone Unavailable Primary Care Provider Unavailabl e Encounter Details Date Type Department Care Team (Late st Contact Info) Description 05/24/2022 Dental Interim Note [facility] Main Dental [address] [place] [phone] Arlene Talavera, RODRIGUEZ [address] [place] [address] Social History Tobacco Use Types Packs/Day Years [...]
--- OUTSIDE RECORDS SUMMARY | 2025-07-30 19:42 | XMS_ITS | Clinical Summary ---
Author Organization [facility] Address [address] [place] [address] Phone Care Team Providers Care Shellfish Harvester Name Role Phone Unavailable Primary Care Provider [...] Cervical Cancer Screening: P ap Smear 2016 HPV Vaccines (1 - 3-dose SCD M series) 2022 Depression Screening 10/30/2024 COVID-19 Vaccine ( - 2023-2 5 season) 2025 Influenza Vaccine (#1) 2025 RSV Immunization Adult Patie nts (1 - 1-dose 75+ series) 2070 HIB Vaccines Aged Out No longer eligi [...]
--- OUTSIDE RECORDS SUMMARY | 2025-07-30 19:42 | XMS_ITS | Encounter Summary ---
Author Organization [facility] Address [address] [place] [address] Care Team Providers Care Emissions Inspector Name Role Phone Unavailable Primary Care Provider Unavailabl e Encounter Details Date Type Department Care Team (Late st Contact Info) Description 05/09/2022 Dental Interim Note [facility] Dental [address] [place] [phone] Mago Harrell, MICHELLE [address] [place] [address] Social History Tobacco Use Types Packs/Day Years [...]
--- OUTSIDE RECORDS SUMMARY | 2025-07-30 19:42 | XMS_ITS | Clinical Summary ---
Author Organization [facility] Address [address] [place] [address] Care Team Providers Care Stockroom Worker Name Role Phone Unavailable Primary Care Provider Unavailabl e Source Comments PLEASE NOTE, if this patient is a minor, it may be UNLAWFUL to discuss sensitive information that is contained in these records (such as FAMILY PLANNING, MENTAL HEALTH or SUBSTANCE ABUSE) with the minor patient's parent or other person without the patient's specific authorization.[facility] Medications PROAIR HFA 90 mcg/actuation inhaler Inhale 2 Puffs into the lungs every 4 to 6 (four to six) hours as needed 05/12/2022 Active fluoride, sodium, (CLINPRO 5000) 1.1 % psteIndications :Caries involving multiple surfaces of tooth [place] twice a day every day for 2 minutes each time. Expectorate, but do not rinse, eat or drink for 30 minutes after using this. 112 g 3 06/09/2022 Active cyclobenzaprine (FLEXERIL) 5 mg tabletIndicatio ns:TMJ disorder Take 1 Tablet by mouth 2 (two) times daily as needed for muscle spasms 30 Tablet 12/27/2024 Active Active Problems No known active problems Immunizations Immunization Administration Dates Next Due DTAP (DAPTACEL),5 PERTUSSIS ANTIGENS 03/13/2000 DTAP (Infanrix) 08/15/2012,1995 DTP 12/19/1996, 6,1995,07/31 Flu, Cell Culture based, Pre servative Free, 6m+, Flucelvax 12/14/2021,07/14/2020 Flu, Preservative Free 07/19/2023,2021,09/17/2019,11/05 HEP B, PED/ADOL ([id number]-EDVL/RECOMBIVAX-PEDS) 1995,1995,1995 HPV, QUADRIVALENT 02/28/2011,12/03/2009 Hib (PRP-T) 08/08/1996, 6,1995,07/31 INFLUENZA, SEASONAL, INJECTABLE 09/02/2011 INFLUENZA, SEASONAL, INJECTA BLE, PRESERVATIVE FREE 08/26/2014,08/15/2012 IPV (IPOL) 03/13/2000, 6,1995,07/31 MENINGOCOCCAL MCV4P (MENACTRA) 12/03/2009 MMR (MMR II/Priorix) 11/09/2018,12/12/19 07,03/13/2000,05/03 OPV, Trivalent 1995,1995,1995 PPD 05/27/2024 TDAP 07/09/2020,11/20/2019,11/17/2006 Td (adult),2 Lf tetanus toxo id (TDVAX), preservative free 11/09/2018 Varicella (Varivax), Live Vaccine 12/03/2009, Social History Tobacco Use Types Packs/Day Years Used Date Smoking Tobacco: Never Smokeless Tobacco: Never Tobacco Cessation:Counseling Given: Not Answered Social Connections Answer Date Recorded Connectedness 0 07/12/2024 Financial Resource Strain Answer Date R ecorded Financial Resource Strain 0 2021 Stress Answer Date Recorded Stress 0 05/09/2022 Physical Activity Answer Date Recorded Physical Activity 0 05/09/2022 Food Insecurity Answer Date Recorded Food 0 07/25/2024 Transportation Needs Answer Date Record ed Transportation 0 05/09/2022 Housing Stability Answer Date Recorded Housing 0 05/09/2022 Safety and Environment Answer Date Son rded Safety 0 05/09/2022 Utilities Answer Date Recorded Utilities 0 05/09/2022 Employment Answer Date Recorded Stress 0 07/12/2024 Comments Unknown Sex and Gender Information Value Date Recorded Sex Assigned at Female 05/27/2024 10:17 AM PDT Legal Sex Female 1:08 PM PDT Gender Identity Female 05/27/2024 10:17 AM PDT Sexual Orientation Straight 05/27/2024 10 :17 AM PDT Last Filed Vital Signs Vital Sign Reading Time Taken Comments Blood Pressure 100/64 12/25/2024 2:46 PM EST Pulse 91 12/25/2024 2:46 PM EST Temperature - - Respiratory Rate - - Oxygen Saturation - - Inhaled Oxygen Concentration - - Weight - - Height - - Body Mass Index - - Plan of Treatment Health Maintenance Due Date Last Done Comments Anxiety Screening 1995 HPV Screening 1995 Pap + HPV 1995 Tobacco Screening 1995 Relationship Safety Screening/Counseling 2010 Cervical Cancer Screening 2016 Pap Smear 2016 Dental BW 06/10/2023 06/08/2022 Dental Examination 06/10/2023 06/08/2022 Dental Prophy 06/10/2023 06/08/2022 Alcohol and Drug Screen 10/30/2024 Depression Annual Screen 10/30/2024 [id number] ( season) 2025 03/01/2022, 08/25/2021, 08/04/2021 Imm-Influenza (#1) 2025 07/19/2023, 0 07/05/2022, 12/14/2021, Additional history exists Hypertension Screening (#1) 12/25/2025 Dental FMX/Pano 08/14/2027 08/12/2022, 06/08/2022 Imm-DTaP/Tdap/Td (11 - Td or Tdap) 07/09/2030 07/09/2020, 11/20/2019, 11/09/2018, Additional history exists Imm-Hepatitis B Completed 1995, 11/1994, 1995 Imm-HPV Completed 02/28/2011, 12/03/2009 HIV Screening Completed 11/01/2024, 11/01/2024 Hepatitis C Screening Completed 11/01/2024 Cervical Ablation/Cold-Knife Conization Discontinued Cervical Cryotherapy Discontinued Colposcopy Discontinued Endometrial Biopsy Discontinued Excision/Leep Discontinued HPV Genotyping Discontinued Vaginal Pap Discontinued Vulvoscopy Discontinued Procedures Procedure Name Priority Date/Time Associated Diagnosis Comments PANORAMIC RADIOGRAPHIC IMAGE Routine 08/12/2022 11:00 AM EDT Pain, dental INTRAORAL - COMP SERIES OF RADIOGRAPHIC IMAGES Routine 06/08/2022 3:00 PM EDT Gingivitis PROPHYLAXIS - ADULT Routine 06/08/2022 3 :00 PM EDT Gingivitis COMP ORAL EVALUATION - NEW/ESTABLISHED PATIENT Routine 06/08/2022 3:00 PM EDT Gingivitis from Last 3 Months or Most Recently Relevant to Health Maintenance Insurance [place] MEDICAID DENTAL [address] [employer] NET DENTAL
--- OUTSIDE RECORDS SUMMARY | 2025-07-30 19:42 | XMS_ITS | Encounter Summary ---
Author Organization [facility] Address [address] [place] [address] Care Team Providers Care Lead Man Over All Dies In Pattern Shop Name Role Phone Unavailable Primary Care Provider Unavailabl e Encounter Details Date Type Department Care Team (Late st Contact Info) Description 05/24/2022 Dental Interim Note [facility] Main Dental [address] [place] [phone] Arlene Talavera, RODRIGUEZ [address] [place] [address] Social History Tobacco Use Types Packs/Day Years [...]
--- OUTSIDE RECORDS SUMMARY | 2025-07-30 19:42 | XMS_ITS | Encounter Summary ---
Author Organization [facility] Address [address] [place] [address] Phone Care Team Providers Care Machine Slat Basket Maker Name Role Phone Unavailable Primary Care Provider Unavailabl e Encounter Details Date Type Department Care Team (Late st Contact Info) Description 06/15/2017 Conversion Encounter [facility] - [address] [address] Social History Tobacco Use Types Packs/Day Years [...]
[2025-07-31 05:39] LABS: Bacterial Vaginosis PCR NEGATIVE (Negative); Candida Group PCR DETECTED (Not Detect); Candida glab krusei PCR NOT DETECTED (Not Detect); Trichomonas vaginalis PCR NOT DETECTED (Not Detect)
== END 2025-07-30 19:40 | disposition home or self-care (01) ==
LOC: HO.HHCLNP 19:39
PROVIDERS: Visit Provider Nurse Practitioner
DX: N89.8 Other specified noninflammatory disorders of vagina (principal)
CPT/HCPCS: 81515

== ENCOUNTER 2025-09-23 15:47 | Outpatient (REF) | payer MEDICAID, SELFPAY ==
--- NOTE | ~2025-09-23 | US_ITS ---
EXAMINATION: US PELVIS CLINICAL INFORMATION: cramping, IUD check COMPARISON: None available. TECHNIQUE: Ultrasound of the pelvis is performed using both transabdominal transducers along with Doppler. Patient declined transvaginal imaging. FINDINGS: Uterus: The uterus is anteverted and measures 11 x 3.4 x 5.0 cm. The double wall endometrial thickness is 5 mm. T-shaped IUD projects in the upper uterine canal, 1-1.5 cm from the apex. The uterus is smooth in contour and has normal myometrial echogenicity. No visible fibroid. Adnexa: Both ovaries are visualized. There is normal color flow to the adnexa. There is no ovarian torsion. There is no pelvic ascites or fluid collection. Right ovary measures 4.0 x 1.7 x 2.7 cm. Left ovary measures 3.3 x 1.6 x 2.7 cm. There is an echogenic focus measuring 12 mm diameter. US/US pelvic complete IMPRESSION: T-shaped IUD is within 1-1.5 cm of the apex of the uterine canal. There is a 12 mm echogenic focus within the left ovary that probably represents a small fatty deposition such as associated with a small dermoid/teratoma, not requiring further follow-up. Electronically signed by: Anson Toure MD 09/23/2025 04:32 PM [facility]
--- OUTSIDE RECORDS SUMMARY | 2025-09-23 19:19 | XMS_ITS | Clinical Summary ---
Author Organization [employer] Address [address] [place] [address] [address] [place] [address] Care Team Providers Care Post Acute Care Nurse Practitioner Name Role Phone Nneka Velazquez NP Primary Care Provider Allergies No known active allergies Medications ProAir HFA 108 (90 Base) MCG/ACT inhaler 2 puffs every 4 (four) hours if needed. 07/08/20 22 Active cholecalciferol (Vitamin D-3) 20 MCG (800 UNIT) tablet Take 1 tablet (20 mcg) by mouth Once per day. 90 tablet 2 04/03/20 25 026 Active PARAGARD INTRAUTERINE COPPER IU 1 Units by Intrauterine route 1 (one) time. Inserted 06/16/2025 Active tretinoin (Retin-A) 0.025 % creamIndications :Acne, unspecified acne type Apply topically at bedtime. After cleansing face. If skin become irritated, decrease use to every other night and apply facial moisturizer. Avoid direct sun exposure 45 g 2 07/15/20 25 026 Active SUMAtriptan (Imitrex) 50 MG tabletIndication s:Migraine without aura, not refractory Take 1 tablet (50 mg) by mouth 1 (one) time if needed for migraine for up to 9 doses. Lie down for at least 30 mins. May repeat dose once in 2 hours if no relief. Do not exceed 2 doses in 24 hours. 9 tablet 07/15/20 25 Active spironolactone (Aldactone) 25 MG tabletIndication s:Acne, unspecified acne type One tablet by mouth daily in the morning 30 tablet 2 07/15/20 25 Active fluticasone furoate (Arnuity Ellipta) 50 MCG/ACT inhaler INHALE 1 PUFFS EVERY DAY RINSE MOUTH AFTER USING. 30 each 3 07/15/20 25 Active Tirzepatide-Weig ht Management (Zepbound) 15 MG/0.5ML solution auto-injectorInd ications:Morbid obesity (CMS/HCC) (HCC) Inject 0.5 mL (15 mg) under the skin 1 (one) time per week for 28 days. INJECT ONE PEN (=15MG) SUBCUTANEOUSLY ONCE A WEEK DIRECTED 2 mL 08/24/20 25 025 Hospital, Clinic, or Other Facility Administered Medication Ordered Dose Route Frequency Start Date End Date Status lidocaine 2 % gelIndications:Encounter for IUD insertion TOP As needed 06/16/2025 Active Active Problems Problem Noted Date Diagnosed Date Vaginal discharge 06/17/2025 UTI symptoms 06/11/2025 Assessment & Plan (06/11/2025 5:57 PM EDT): UA and culture ordered patient will be contacted with results I advised to drink plenty of water do not hold the urine I will prescribe Macrobid 100 mg twice a day for 1 week and Pyridium 100 mg twice daily for 2 days Ear pressure, bilateral 12/23/2023 Assessment & Plan (12/23/2023 8:35 PM EST): Pt with normal Bl ear exam and normal oropharynx only mild erythema ,possible eustachian tube dysfunction -trial w flonase and cetirizine -apt w PCP 01/02/2026 already schedule -if no better by then will need to consier ENT referral Gastroenteritis 02/21/2023 Overview (02/21/2023): -Differential include viral verses food borne pathogen. -no evidence of dehydration on exam -no evidence of acute abdomen -supportive care with fluids -ER precautions discussed Assessment & Plan (02/21/2023 2:18 PM EDT): -Differential include viral verses food borne pathogen. -no evidence of dehydration on exam -no evidence of acute abdomen -supportive care with fluids -ER precautions discussed Migraine without aura, not refractory 10/19/2022 Assessment & Plan (06/13/2025 8:03 AM EDT): -reports intermittent increased in migraine frequency -refill provided for abortive medication -maintain headache diary and avoid triggers -consider preventative medication if migraines >15 per month Assessment & Plan (11/01/2024 12:33 PM EST): -stable per patient -no further interventions at this time Assessment & Plan (07/17/2023 12:22 PM EDT): Headache is probably related to sinusitis this time Use tylenol prn If no improved with it or Flonase, take Imitrex and fu w PCP Mild persistent asthma 12/18/2021 Assessment & Plan (11/01/2024 12:33 PM EST): -stable per patient -no further interventions at this time Morbid obesity (CMS/HCC) 12/18/2021 Assessment & Plan (06/04/2025 10:37 AM EDT): Patient currently on pharmacotherapy to assist with management of their weight. Pt has lost 30 pounds. Starting weight: 276 lbs lbs Current weight: 246 lbs Continue increased dose of Zepbound and continue lifestyle modifications. Review continue lifestyle modifications. Patient was titrated up towards treatment dose. Patient on Zepbound, given know efficacy and proven benefits to reduce the risk of cardiovascular events in patients who are overweight or obese and have cardiovascular disease, following of the SELECT trial results. Reviewed mechanism of action with patient. Discussed side effects with patient: nausea, vomiting, diarrhea & risk of pancreatitis. No contraindications identified: , hx of pancreatitis, hx of medullary thyroid cancer or MEN 2. Discussed calorie deficit, recommended reduction of 20-30% of maintenance calories; geoscience technician referral offered. Recommended to decrease soda and sugary beverage consumption. Recommended at least 20 g per meal of protein to assist with satiety. Recommended at least 150 min/week of moderate intensity exercise. Assessment & Plan (04/30/2025 7:25 AM EDT): Patient currently on pharmacotherapy to assist with management of their weight. Pt has lost 11 pounds. Starting weight: 276 lbs lbs Current weight: 265 lbs Continue increased dose of Zepbound and continue lifestyle modifications. Review continue lifestyle modifications. Patient was titrated up towards treatment dose. Patient on Zepbound, given know efficacy and proven benefits to reduce the risk of cardiovascular events in patients who are overweight or obese and have cardiovascular disease, following of the SELECT trial results. Reviewed mechanism of action with patient. Discussed side effects with patient: nausea, vomiting, diarrhea & risk of pancreatitis. No contraindications identified: , hx of pancreatitis, hx of medullary thyroid cancer or MEN 2. Discussed calorie deficit, recommended reduction of 20-30% of maintenance calories; geoscience technician referral offered. Recommended to decrease soda and sugary beverage consumption. Recommended at least 20 g per meal of protein to assist with satiety. Recommended at least 150 min/week of moderate intensity exercise. Assessment & Plan (11/01/2024 12:33 PM EST): -patient recently restarted semaglutide. Zepbound prescription sent to pharmacy for next month's fill -No contraindications identified: , hx of pancreatitis, hx of medullary thyroid cancer. No known retinopathy. -Discussed side effects with patient: side effects of GLP1: nausea, vomiting, diarrhea & risk of pancreatitis. -discussed mechanism of action with patient which include eating small portions and not eating through sensation of fullness. -Advised to keep medication refrigerated, but do not freeze -Recommended to decrease soda and sugary beverage consumption. -Recommended at least 20 g per meal of protein to assist with satiety. -Recommended at least 150 min/week of moderate intensity exercise. Encounters Date Type Department Care Team Description 09/01/2025 Telephone [facility] [address] [place] [phone] Nneka Velazquez NP Prior Authorization 08/25/2025 Telephone [facility] [employer] [address] [place] [phone] Nneka Velazquez NP 08/22/2025 Refill [facility] [address] [place] [address] [phone] Nneka Velazquez NP Morbid obesity (CMS/HCC) (HCC) 07/31/2025 Results Follow-Up [facility] [address] [place] [address] [phone] Nneka Velazquez NP Bacterial Vaginosis 07/30/2025 11:30 AM EDT Office Visit [facility] [address] [place] [phone] Nneka Velazquez NP Checking of intrauterine device (Primary Dx); Pelvic cramping; History of rectal fissure; Vaginal discharge; Breast lump on right side at 2 o'clock position; Rectal bleeding; Labial cyst 07/30/2025 Orders Only [facility] [address] [place] [address] [phone] Nneka Velazquez NP 07/30/2025 Travel 07/16/2025 Refill [facility] [address] [place] [address] [phone] Nneka Velazquez NP Morbid obesity ([facility]/HCC) 07/14/2025 Refill [facility] [address] [place] [address] [phone] Nneka Velazquez NP Acne, unspecified acne type; Migraine without aura, not refractory; Acne, unspecified acne type; Morbid obesity (CMS/HCC) 07/14/2025 Refill [facility] [address] [place] [address] [phone] Domitila Hernandez FNP 06/25/2025 Refill [facility] [address] [place] [address] [phone] Nneka Velazquez NP Morbid obesity ([facility]) from Last 3 Months Immunizations Immunization Administration Dates Next Due DTP 12/19/1996, 6,1995,07/31 DTaP 08/15/2012, 0,1995,12/04,1995,1995 DTaP, 5 pertussis antigens 03/13/2000 HPV, Quadrivalent 02/28/2011,12/03/2009 Hep B, Adolescent or Pediatric 1995,1994,1995 Hib (HbOC) 08/08/1996, 6,1995,07/31 Hib (PRP-T) 08/08/1996, 6,1995,07/31 IPV 03/13/2000, 6,1995,07/31 Influenza Injectable Quadriv alant Preservative Free IIV4 MDCK 12/14/2021,07/14/2020 Influenza injectable quadriv alent preservative free 07/19/2023,07/05/2022,09/17/2019,11/05 Influenza, IIV3, injectable 09/02/2011 Influenza, seasonal, injecta ble, preservative free 08/26/2014,08/15/2012 MMR 11/09/2018, 7,03/13/2000,05/03 Meningococcal MCV4P ACYW-135 12/03/2009 OPV, Trivalent 1995,1995,1995 TD (adult), 2 Lf tetanus tox oid, preservative free, adsorbed 11/09/2018 Tdap 07/09/2020,11/20/2019,11/17/2006 Varicella 12/03/2009,07/23/1998 Family History Medical History Relation Name Comments Breast cancer Father's Sister Colon cancer Maternal Grandfather Diabetes type II Maternal Grandmother Ovarian cancer Maternal Grandmother Diabetes Mother Hyperlipidemia Mother vertigo Mother Colon cancer Paternal Grandfather Breast cancer Paternal Grandmother Relation Name Status Comments Father's Sister Maternal Grandfather Maternal Grandmother Mother Paternal Grandfather Paternal Grandmother Social History Tobacco Use Types Packs/Day Years Used Date Smoking Tobacco: Never Passive Smoke Exposure: Never Smokeless Tobacco: Never Tobacco Cessation:Counseling Given: Not Answered Alcohol Use Standard Drinks/Week Comments Yes 0 [...] the past 12 months, has t he flipClass, gas, oil or water company threatened to [...] Orientation Straight 08/29/2022 10 :15 AM EDT Last Filed Vital Signs Vital Sign Reading Time Taken Comments Blood Pressure 120/78 07/30/2025 11:56 AM EDT Pulse 106 07/30/2025 11:56 AM EDT Temperature 36.7 C (98.1 F) 07/30/2025 11:56 AM EDT Respiratory Rate 24 07/30/2025 11:56 AM EDT Oxygen Saturation 98% 07/30/2025 11:56 AM EDT Inhaled Oxygen Concentration - - Weight 107 kg (236 lb) 07/30/2025 11:56 AM EDT Height 160 cm (5' 3 ) 07/30/2025 11:56 AM EDT Body Mass Index 41.81 07/30/2025 11:56 AM EDT Plan of Treatment Health Maintenance Due Date Last Done Comments Family Planning (PISQ) 2010 Pneumococcal Vaccine: Pediatrics (0 to 5 Years) and At-Risk Patients (6 to 49) Years (1 of 2 - PCV) 2014 HPV/Cotest 2025 COVID-19 Vaccine ( season) 2025 03/01/2022, 08/25/2021, 08/04/2021 Influenza Vaccine (#1) 2025 3, 07/05/2022, 12/14/2021, Additional history exists Alcohol/Substance Use Screening 11/01/2025 11/01/2024 Depression Screening 11/01/2025 11/01/2024, 11/01/19 Disability Screening 01/31/2026 01/31/2025 Cervical Cancer Screening 03/23/2026 Pap Smear 03/23/2026 03/23/2023 SDOH Screening 06/04/2026 06/04/2025 Tobacco Screening 07/30/2026 07/30/2025 Lipid Panel 06/04/2030 06/04/2025, 05/31, 06/22/2023 DTaP/Tdap/Td Vaccines (11 - Td or Tdap) 07/09/2030 07/09/2020, 11/20/2019, 11/09/2018, Additional history exists Zoster Vaccines (1 of 2) 2045 RSV Patients and Patients Aged 60 years or older (1 - 1-dose 75+ series) 2070 Hepatitis B Vaccines Completed 1995, 1995, 1995 HIB Vaccines Completed 08/08/1996, 07/30, 1995, Additional history exists IPV Vaccines Completed 03/13/2000, 02/1996, 1995, Additional history exists Meningococcal Vaccine Aged Out 12/03/2009 No rachael minda eligible based on patient's age to complete this topic HPV Vaccines Completed 02/28/2011, 12/03/2009 HIV Screening Completed 11/01/2024 Hepatitis C Screening Completed 11/01/2024 Hepatitis A Vaccines Aged Out No long er eligible based on patient's age to complete this topic Meningococcal B Vaccine Aged Out No l onger eligible based on patient's age to complete this topic RSV under 20 months Aged Out No longe r eligible based on patient's age to complete this topic Rotavirus Vaccines Aged Out No longer eligible based on patient's age to complete this topic Procedures Procedure Name Priority Date/Time Associated Diagnosis Comments US PELVIS COMPLETE Routine 09/23/2025 4: 09 PM EST BACTERIAL VAGINOSIS PANEL Routine 07/30/2025 1:57 PM EDT LIPID PANEL, STANDARD Routine 06/04/2025 11:18 AM EDT Morbid obesity (CMS/HCC) Dyslipidemia (high LDL; low HDL) HEPATITIS C AB W/REFL TO HCV RNA, QN, PCR Routine 11/01/2024 11:36 AM EST Encounter for health-related screening HIV 1/2 ANTIGEN/ANTIBODY, FOURTH GENERATION W/RFL Routine 11/01/2024 11:36 AM EST Encounter for health-related screening IMAGE-GUIDED PAP W/AGE BASED SCR,W/CT/NG/TRICH Routine 03/23/2023 11:45 AM EDT Cervical cancer screening from Last 3 Months or Most Recently Relevant to Health Maintenance Results * Us Pelvis complete (09/23/2025 4:09 PM EST) Anatomical Region Laterality Modality Pelvis Ultrasound 09/23/2025 4:09 PM EST Narrative 09/23/2025 4:35 PM EST [place] [id number] Ultrasound Report Signed Patient: Leilani Morillo MR#: [id number] 87 : 1995 Acct:[id number] Age/Sex: 30 / F ADM Date: 09/23/25 Loc: HO.US Attending Dr: Nneka Velazquez Ordering Physician: Nneka Velazquez Date of Service: 09/23/25 Procedure(s): US pelvic complete Accession Number(s): [id number] cc: Nneka Velazquez Reason for Exam: cramping w/ IUD check EXAMINATION: US PELVIS CLINICAL INFORMATION: cramping, IUD check COMPARISON: None available. TECHNIQUE: Ultrasound of the pelvis is performed using both transabdominal transducers along with Doppler. Patient declined transvaginal imaging. FINDINGS: Uterus: The uterus is anteverted and measures 11 x 3.4 x 5.0 cm. The double wall endometrial thickness is 5 mm. T-shaped IUD projects in the upper uterine canal, 1-1.5 cm from the apex. The uterus is smooth in contour and has normal myometrial echogenicity. No visible fibroid. Adnexa: Both ovaries are visualized. There is normal color flow to the adnexa. There is no ovarian torsion. There is no pelvic ascites or fluid collection. Right ovary measures 4.0 x 1.7 x 2.7 cm. Left ovary measures 3.3 x 1.6 x 2.7 cm. There is an echogenic focus measuring 12 mm diameter. US/US pelvic complete IMPRESSION: T-shaped IUD is within 1-1.5 cm of the apex of the uterine canal. There is a 12 mm echogenic focus within the left ovary that probably represents a small fatty deposition such as associated with a small dermoid/teratoma, not requiring further follow-up. Electronically signed by: Anson Toure MD 09/23/2025 04:32 PM [facility] Dictated By: Anson Toure MD Signed By: <Electronically signed by Anson Toure MD in OV> 09/23/25 1632 DD/ 1609 TD/TT: 09/23/25 1612 Terminal Gauger: Procedure Note Donotuseinterpreter, Image - 09/23/2025 [place] [id number] Ultrasound Report Signed Patient: Aquiles Morillo#: [id number] 87 : 1995Acct:[id number] Age/Sex: 30 / FADM Date: 09/23/25 Loc: HO.US Attending Dr: Nneka Velazquez Ordering Physician: Nneka Velazquez Date of Service: 09/23/25 Procedure(s): US pelvic complete Accession Number(s): [id number] cc: Nneka Velazquez Reason for Exam: cramping w/ IUD check EXAMINATION: US PELVIS CLINICAL INFORMATION: cramping, IUD check COMPARISON: None available. TECHNIQUE: Ultrasound of the pelvis is performed using both transabdominal transducers along with Doppler. Patient declined transvaginal imaging. FINDINGS: Uterus: The uterus is anteverted and measures 11 x 3.4 x 5.0 cm. The double wall endometrial thickness is 5 mm. T-shaped IUD projects in the upper uterine canal, 1-1.5 cm from the apex. The uterus is smooth in contour and has normal myometrial echogenicity. No visible fibroid. Adnexa: Both ovaries are visualized. There is normal color flow to the adnexa. There is no ovarian torsion. There is no pelvic ascites or fluid collection. Right ovary measures 4.0 x 1.7 x 2.7 cm. Left ovary measures 3.3 x 1.6 x 2.7 cm. There is an echogenic focus measuring 12 mm diameter. US/US pelvic complete IMPRESSION: T-shaped IUD is within 1-1.5 cm of the apex of the uterine canal. There is a 12 mm echogenic focus within the left ovary that probably represents a small fatty deposition such as associated with a small dermoid/teratoma, not requiring further follow-up. Electronically signed by: Anson Toure MD 09/23/2025 04:32 PM EST Dictated By: Anson Toure MD Signed By: <Electronically signed by Anson Toure MD in OV> 09/23/25 1632 DD/ 1609 TD/TT: 09/23/25 1612 Terminal Gauger: us Nneka Appram SIGNAL WIRER IMG US PROCEDURES Final Result * (ABNORMAL) Bacterial Vaginosis (07/30/2025 1:57 PM EDT) TRICHOMONAS VAGINALIS DETECTION BY PCR NOT DETECTED Not Detect [facility] BACTERIAL VAGINOSIS DETECTION BY PCR NEGATIVE Negative [facility] Comment:The BV organism targ ets of the Xpert Xpress MVP test can becommensal in women; Xpert Xpress MVP positive results forbacterial vaginosis should be considered in conjunction withother clinical and patient information to determine thedisease status. Organisms that are not detected by the XpertXpress MVP test have also been reported to be associatedwith BV and aerobic vaginitis.The Xpert Xpress MVP test performance has not been evaluatedin patients under the age of 14. FARHEEN GROUP DETECTION BY PCR DETECTED(A) Not Detect [facility] Farheen glab krusei PCR NOT DETECTED Not Detect [facility] 07/30/2025 1:57 PM EDT 07/30/2025 7:40 PM EDT Nneka Audie SIGNAL WIRER LAB MICROBIOLOGY - GENERAL ORDE RABLES Final Result Performing Organization Address [facility] Co de Phone Number [facility] [address] [place] [address] [phone] * (ABNORMAL) Lipid Panel, Standard (06/04/2025 11:18 AM EDT) Triglycerides 81 <150 mg/dL [facility] Comment:Desirable Triglyceri de: less than 150 mg/dLBorderline High Triglyceride 150-199 mg/dLHigh Triglyceride: 200-499 mg/dLVery High Triglyceride: greater than or equal to 5OO mg/dL Cholesterol 181 <200 mg/dL [facility] Comment:Desirable Cholestero l: less than 200 mg/dLBorderline High Cholesterol: 200-239 mg/dLHigh Cholesterol: greater than 239 mg/dL LDL Cholesterol Calculated 130(H) <100 mg/dL [facility] Comment:Desirable LDL: less than 100 mg/dLNear Optimal/Above Optimal LDL: 110- 129 mg/dLBorderline High LDL: 130-159 mg/dLHigh LDL: 160-189 mg/dLVery High LDL: greater than or equal to 190 mg/dL HDL Cholesterol 35(L) >40 mg/dL [facility] Comment:Desirable HDL: great er than 40 mg/dL Note: This HDL assay may give artificially low results in patients with liver disease. Blood Venous blood specimen / Unknown 06/04/2025 11:18 AM EDT 06/04/2025 1:33 PM EDT Nneka Velazquez NP LAB BLOOD ORDERABLES Final Resu lt [facility] [address] [place] [address] [phone] * Hepatitis C Antibody with Reflex to HCV, RNA, Quantitative, Real-Time PCR (11/01/2024 11:36 AM EST) Hepatitis C Antibody Nonreactive Nonreactive [facility] Comment:Antibodies to HCV no t detected; does not exclude early acuteHCV infection. Blood Venous blood specimen / Unknown 11/01/2024 11:36 AM EST 11/01/2024 1:07 PM EST us Nneka Velazquez SIGNAL WIRER LAB BLOOD ORDERABLES Final Resu lt Performing Organization Address [facility] Number [facility] [address] [place] [phone] * HIV-1/2 Antigen and Antibodies, Fourth Generation, with Reflexes (11/01/2024 11:36 AM EST) HIV AB/AG Nonreactive Nonreactive [facility] Comment:HIV-1 p24 Ag and/or HIV-1/HIV-2 Ab not detected.A test result that is nonreactive does not exclude thepossibility of exposure to or infection with HIV-1 and/orHIV-2. Nonreactive results in this assay for individualswith prior exposure to HIV-1 and/or HIV-2 may be due toantigen and antibody levels that are below the limit ofdetection of this assay.The [employer] HIV Ag/Ab Combo assay result andsupplemental assay results should be interpreted inconjunction with the patient's clinical presentation,history and other laboratory results. If the results areinconsistent with clinical evidence, additional testing issuggested to confirm the result. Blood Venous blood specimen / Unknown 11/01/2024 11:36 AM EST 11/01/2024 1:07 PM EST us Nneka Velazquez SIGNAL WIRER LAB BLOOD ORDERABLES Final Resu lt Performing Organization Address [facility]/State/ZIP Co de Phone Number [facility] [address] [place] [address] [phone] * Image-Guided Pap with Age-Based Screening??with CT/NG,??Trichomonas (03/23/2023 11:45 AM EDT) Comment [email or web address] Comment: This order for age-based cervical cancer and STI screening follows ACOG guidelines(PB 168, 140, XES749). See individual assays for performing site location. Clinical Information: PELVIC PAIN W/ IUD [employer] [facility] LMP: NONE GIVEN [employer] Prev. PAP: NONE GIVEN [employer] Prev. BX: NONE GIVEN [employer] [facility] SOURCE: None given [employer] Statement Of Adequacy: [email or web address] Comment: Satisfactory for evaluation. Endocervical/transformation zone component present. Interpretation/Re sult: Negative for intraepithelial lesion or malignancy. [employer] COMMENT: This Pap test has been evaluated with computer assisted technology. [facility] [place] [employer] [facility] [employer]: [employer] Comment: JNA, CT(ASCP) CT screening location: [address] [address] (Always Message) [facility] [employer] Comment: EXPLANATORY NOTE: The Pap is a screening test for cervical cancer. It is not a diagnostic test and is subject to false negative and false positive results. It is most reliable when a satisfactory sample, regularly obtained, is submitted with relevant clinical findings and history, and when the Pap result is evaluated along with historic and current clinical information. Chlamydia trachomatis RNA, TMA, Urogenital NOT DETECTED NOT DETECTED [employer] Neisseria gonorrhoeae RNA, TMA, Urogenital NOT DETECTED NOT DETECTED [employer] [facility] Comment [employer] Comment: The analytical performance characteristics of this assay, when used to test SurePath(TM) specimens have been determined by [facility]. The modifications have not been cleared or approved by the FDA. This assay has been validated pursuant to the CLIA regulations and is used for clinical purposes. For additional information, please refer to https://[employer]/faq/EHT223 (This link is being provided for information/ educational purposes only.) Trichomonas vaginalis, QL, TMA, PAP Vial NOT DETECTED NOT DETECTED [employer] Comment: The analytical performance characteristics of this assay have been determined by [facility]. The modifications have not been cleared or approved by the FDA. This assay has been validated pursuant to the CLIA regulations and is used for clinical purposes. For additional information, please refer to http://[employer]/ faq/Trichomonastma (This link is being provided for information/ educational purposes only.) Pap Vial 03/23/2023 11:4 5 AM EDT 03/24/2023 7:59 AM EDT Wanda Yuen [facility] LAB CYTOLOGY ORDERABLES F inal Result [facility] [address], [place] [phone] [employer] [employer] [address] [place] [phone] from Last 3 Months or Most Recently Relevant to Health Maintenance Insurance C3 Care Teams Post Acute Care Nurse Practitioner Relationship Specialty Start Date End Date Nneka Velazquez NP [address] [place] [address] PCP - General Family Medicine 07/02/24
--- OUTSIDE RECORDS SUMMARY | 2025-09-23 19:19 | XMS_ITS | Encounter Summary ---
Author Organization [employer] Address [address] [place] [address] 7 [place] [address] Care Team Providers Care Command Center Analyst Name Role Phone Nneka Velazquez NP Primary Care Provider [phone] Encounter Details Date Type Department Care Team ([facility] st Contact Info) Description 07/31/2025 Results Follow-Up [facility] MEDICINE 230 [place] [address] Nneka Velazquez NP 230 [place] [address] Bacterial Vaginosis Social History Tobacco Use Types Packs/Day Years [...] as of this encounter Visit Diagnoses Diagnosis Vaginal ernestina- Primary Candidiasis of vulva and vagina documented in this encounter Additional Health Concerns Assessment Noted Time PHQ-9 Depression Total Score: 3 11/01/19 25 11:27 AM EST documented as of this encounter Care Teams Command Center Analyst Relationship Specialty Start Date End Date Nneka Velazquez NP [address] [place] [address] PCP - General Family Medicine 07/02/24 documented as of this encounter
--- OUTSIDE RECORDS SUMMARY | 2025-09-23 19:19 | XMS_ITS | Encounter Summary ---
Author Organization [employer] Address [address] [place] [address] [address] [place] [address] Care Team Providers Care Timber Management Professor Name Role Phone Nneka Velazquez NP Primary Care Provider [phone] Encounter Details Date Type Department Care Team ([facility] st Contact Info) Description 08/21/2024 Telephone [facility] MEDICINE 230 [place], [place] [phone] Nneka Velazquez NP 230 [place] [address] Social History Tobacco Use Types Packs/Day Years Used Date Smoking Tobacco: Never Passive Smoke Exposure: Never Smokeless Tobacco: Never Alcohol Use Standard Drinks/Week Comments Not Currently 0 (1 standard drink = 0.6 oz pur e alcohol) Depression Answer Date Recorded Patient Health Questionnaire-9 Score 11 06/21/2024 Patient Health Questionnaire-9 Score 11 06/21/2024 Last PHQ-9: Questionnaire Data Not on file 0 06/21/2024 Housing Stability Answer Date Recorded What is [...] Answer Date Recorded Patient Health Questionnaire-2 Score 2 06/21/2024 Internet Access Answer Date Recorded Internet Access Q1 Yes 06/28/2024 Internet Access Q2 Not on file 06/28/2024 Comments Yes Sex and Gender Information Value Date Recorded Sex Assigned at Female 08/29/2022 10:15 AM EDT Legal Sex Female 10:15 AM EDT Gender Identity Female 08/29/2022 10:15 AM EDT Sexual Orientation Straight 08/29/2022 10 :15 AM EDT documented as of this encounter Plan of Treatment Not on file documented as of this encounter Visit Diagnoses Not on filedocumented in this encounter Additional Health Concerns Assessment Noted Time PHQ-9 Depression Total Score: 11 024 3:13 PM EDT documented as of this encounter Care Teams Timber Management Professor Relationship Specialty Start Date End Date Nneka Velazquez NP [address] [place] [address] PCP - General Family Medicine 07/02/24 documented as of this encounter
--- OUTSIDE RECORDS SUMMARY | 2025-09-23 19:19 | XMS_ITS | Encounter Summary ---
Author Organization [employer] Address [address] [place] [address] 7 [place] [address] Care Team Providers Care Mixer Lever Operator Name Role Phone Nneka Velazquez NP Primary Care Provider [phone] Encounter Details Date Type Department Care Team ([facility] st Contact Info) Description 05/07/2025 Orders Only [facility] MEDICINE 230 [place] [address] Nneka Velazquez NP 230 [place] [address] Morbid obesity (CMS/HCC) (Primary Dx) Social History [...] is your housing situation today? I have carrillonicolas cole 09/04/[address] you [...] this encounter Visit Diagnoses Diagnosis Morbid obesity (CMS/HCC) (HCC)- Primary Morbid obesity documented in this encounter Additional Health Concerns Assessment Noted Time PHQ-9 Depression Total Score: 3 11/01/19 25 11:27 AM EST documented as of this encounter Care Teams Mixer Lever Operator Relationship Specialty Start Date End Date Nneka Velazquez NP [address] [place] [address] PCP - General Family Medicine 07/02/24 documented as of this encounter
--- OUTSIDE RECORDS SUMMARY | 2025-09-23 19:19 | XMS_ITS | Encounter Summary ---
Author Organization [employer] Address [address] [place] [address] [place] [address] Care Team Providers Care Applications Chemist Name Role Phone Nneka Velazquez NP Primary Care Provider [phone] Reason for Visit * Reason Onset Date Comments Med Refill 07/14/2025 Encounter Details Date Type Department Care Team (Late st Contact Info) Description 07/14/2025 Refill [facility] 230 [place] [address] Domitila Hernandez FNP 230 [place] [address] Social History Tobacco Use Types Packs/Day Years [...] documented as of this encounter Care Teams Applications Chemist Relationship Specialty Start Date End Date Nneka Velazquez NP 230 [place] [address] PCP - General Family Medicine 07/02/24 documented as of this encounter
--- OUTSIDE RECORDS SUMMARY | 2025-09-23 19:19 | XMS_ITS | Encounter Summary ---
Author Organization [employer] Address [address] [place] [address] Care Team Providers Care Staff Educator Name Role Phone Nneka Velazquez NP Primary Care Provider [phone] Reason for Visit * Reason Onset Date Comments Med Refill 07/16/2025 Encounter Details Date Type Department Care Team ([facility] st Contact Info) Description 07/16/2025 Refill [facility] MEDICINE [address] [place] [address] Nneka Velazquez NP 230 [place] [address] Morbid obesity (CMS/HCC) Social History Tobacco Use Types Packs/Day Years [...] encounter Visit Diagnoses Diagnosis Morbid obesity (CMS/HCC) (HCC) Morbid obesity documented in this encounter Additional Health Concerns Assessment Noted Time PHQ-9 Depression Total Score: 3 11/01/19 25 11:27 AM EST documented as of this encounter Care Teams Staff Educator Relationship Specialty Start Date End Date Nneka Velazquez NP 230 [place] [address] PCP - General Family Medicine 07/02/24 documented as of this encounter
--- OUTSIDE RECORDS SUMMARY | 2025-09-23 19:19 | XMS_ITS | Encounter Summary ---
Author Organization [employer] Address [address] [place] [address] 7 [place] [address] Care Team Providers Care Managing Broker Name Role Phone Domitila Hernandez Primary Care Provider [phone] Nneka Velazquez NP Primary Care Provider [phone] Encounter Details Date Type Department Care Team (Late st Contact Info) Description 05/22/2024 Orders Only [facility]C MED & PEDS [address] [place] [address] Domitila Hernandez FNP 230 [place] [address] Social History Tobacco Use Types Packs/Day Years Used Date Smoking Tobacco: Never Passive Smoke Exposure: Never Smokeless Tobacco: Never Alcohol Use Standard Drinks/Week Comments Not Currently 0 (1 standard drink = 0.6 oz pur e alcohol) Depression Answer Date Recorded Patient Health Questionnaire-9 Score 4 06/22/2023 Housing Stability Answer Date Recorded What is [...] Date Recorded Patient Health Questionnaire-2 Score 0 06/22/2023 Comments No Sex and Gender Information Value [...] Assessment Noted Time PHQ-9 Depression Total Score: 4 06/22/20 23 2:17 PM EDT documented as of this encounter Care Teams Managing Broker Relationship Specialty Start Date End Date Domitila Hernandez FNP 230 [place] [address] PCP - General Family Medicine 05/04/23 07/01/24 Nneka Velazquez NP 230 [place] [address] PCP - General Family Medicine 07/02/24 documented as of this encounter
--- OUTSIDE RECORDS SUMMARY | 2025-09-23 19:19 | XMS_ITS | Encounter Summary ---
Author Organization [employer] Address [address] [place] [address] Care Team Providers Care Hop Trainer Name Role Phone Domitila Hernandez Primary Care Provider [phone] Nneka Velazquez NP Primary Care Provider [phone] Reason for Visit * Reason Onset Date Comments Med Refill 03/06/2024 Encounter Details Date Type Department Care Team (Late st Contact Info) Description 03/06/2024 Refill [facility] MEDICINE 230 [place] [address] Domitila Hernandez FNP 230 [place], [place] [phone] Mild persistent asthma without complication Social History Tobacco Use Types Packs/Day Years [...] as of this encounter Visit Diagnoses Diagnosis Mild persistent asthma without complication documented in this encounter Additional Health Concerns Assessment Noted Time PHQ-9 Depression Total Score: 4 06/22/20 23 2:17 PM EDT documented as of this encounter Care Teams Hop Trainer Relationship Specialty Start Date End Date Domitila Hernandez FNP 230 [place] [address] PCP - General Family Medicine 05/04/23 07/01/24 Nneka Velazquez NP 230 [place] [address] PCP - General Family Medicine 07/02/24 documented as of this encounter
--- OUTSIDE RECORDS SUMMARY | 2025-09-23 19:19 | XMS_ITS | Encounter Summary ---
Author Organization [employer] Address [address] [place] [address] Care Team Providers Care Director Mba Name Role Phone Nneka Velazquez NP Primary Care Provider [phone] Reason for Referral * Consultation (Routine) - Closed Specialty Diagnoses / Procedures Referred By Walter arthur Referred To Contact Obstetrics and Gynecology Diagnoses Positive test Nneka Velazquez NP 230 [place] [address] Phone: tel: fax: [facility] [address] [place] [phone] Phone: tel: fax: Referral ID Status Reason Start Date Expiration Date V isits Requested Visits Authorized [id number] Closed Specialty Services Required 08/21/2024 08/21/2025 30 30 Encounter Details Date Type Department Care Team (Late st Contact Info) Description 08/21/2024 Orders Only [facility] [address] [place] [address] Nneka Velazquez NP 230 [place], [place] [phone] Positive test (Primary Dx) Social History Tobacco Use Types [...] as of this encounter Plan of Treatment Scheduled Referrals Name Type Priority Associated Diagnoses Order Schedule Referral to Obstetrics / Gynecology Outpatient Referral Routine Positive test Expected: 08/21/2024 (Approximate), Expires: 08/21/2025 documented as of this encounter Visit Diagnoses Diagnosis Positive test- Primary examination or test, positive result documented in this encounter Additional Health Concerns Assessment Noted Time PHQ-9 Depression Total Score: 11 024 3:13 PM EDT documented as of this encounter Care Teams Director Mba Relationship Specialty Start Date End Date Nneka Velazquez NP [address] [place] [address] [place] [address] PCP - General Family Medicine 07/02/24 documented as of this encounter
--- OUTSIDE RECORDS SUMMARY | 2025-09-23 19:19 | XMS_ITS | Encounter Summary ---
Author Organization [employer] Address [address] [facility] 7t [place] [address] Care Team Providers Care Croze Machine Operator Name Role Phone Nneka Velazquez NP Primary Care Provider [phone] Encounter Details Date Type Department Care Team ([facility] st Contact Info) Description 01/20/2025 Orders Only [facility] 230 [place] [address] Nneka Velazquez NP 230 [place] [address] Morbid obesity (CMS/HCC) (Primary Dx) Social History [...] documented as of this encounter Care Teams Croze Machine Operator Relationship Specialty Start Date End Date Nneka Velazquez NP [address] [place] [address] PCP - General Family Medicine 07/02/24 documented as of this encounter
--- OUTSIDE RECORDS SUMMARY | 2025-09-23 19:19 | XMS_ITS | Encounter Summary ---
Author Organization [employer] Address [address] [place] [address] Care Team Providers Care Layout Former Name Role Phone Nneka Velazquez NP Primary Care Provider [phone] Reason for Visit * Reason Comments Med Refill Encounter Details Date Type Department Care Team ([facility] st Contact Info) Description 06/04/2025 Refill [facility] MEDICINE 230 [place] [address] Nneka Velazquez NP 230 [place] [address] Migraine without aura, not refractory Social History Tobacco Use Types Packs/Day Years [...] as of this encounter Visit Diagnoses Diagnosis Migraine without aura, not refractory documented in this encounter Additional Health Concerns Assessment Noted Time PHQ-9 Depression Total Score: 3 11/01/19 25 11:27 AM EST documented as of this encounter Care Teams Layout Former Relationship Specialty Start Date End Date Nneka Velazquez NP [address] [place] [address] PCP - General Family Medicine 07/02/24 documented as of this encounter
--- OUTSIDE RECORDS SUMMARY | 2025-09-23 19:19 | XMS_ITS | Encounter Summary ---
Author Organization [employer] Address [address] [place] [address] 7 [place] [address] Care Team Providers Care Poultry Buyer Name Role Phone Domitila Hernandez Primary Care Provider [phone] Nneka Velazquez NP Primary Care Provider [phone] Encounter Details Date Type Department Care Team (Late st Contact Info) Description 01/12/2024 Orders Only [facility] CH[facility] MED & PEDS [address] [place] [address] Domitila Hernandez FNP 230 [place] [address] Social History Tobacco Use Types Packs/Day Years [...] documented as of this encounter Care Teams Poultry Buyer Relationship Specialty Start Date End Date Domitila Hernandez FNP 230 [place] [address] PCP - General Family Medicine 05/04/23 07/01/24 Nneka Velazquez NP 230 [place] [address] PCP - General Family Medicine 07/02/24 documented as of this encounter
--- OUTSIDE RECORDS SUMMARY | 2025-09-23 19:19 | XMS_ITS | Encounter Summary ---
Author Organization [employer] Address [address] [place] [address] [address] [place] [address] Care Team Providers Care Food And Beverage Lead Name Role Phone Nneka Velazquez NP Primary Care Provider [phone] Encounter Details Date Type Department Care Team ([facility] st Contact Info) Description 08/21/2024 Telephone [facility] MEDICINE 230 [place], [place] [phone] Nneka Velazquez NP 230 [place] [address] Social History Tobacco Use Types Packs/Day Years [...] documented as of this encounter Care Teams Food And Beverage Lead Relationship Specialty Start Date End Date Nneka Velazquez NP [address] [place] [address] PCP - General Family Medicine 07/02/24 documented as of this encounter
--- OUTSIDE RECORDS SUMMARY | 2025-09-23 19:19 | XMS_ITS | Encounter Summary ---
Author Organization [employer] Address [address] [place] [address] 7 [place] [address] Care Team Providers Care Rotary Shear Cutter Name Role Phone Nneka Velazquez NP Primary Care Provider [phone] Encounter Details Date Type Department Care Team ([facility] st Contact Info) Description 06/13/2025 Orders Only [facility] MEDICINE 230 [place] [address] Margarita Jones MD 230 [place] [address] Acute cystitis without hematuria (Primary Dx) Social History Tobacco Use Types [...] as of this encounter Visit Diagnoses Diagnosis Acute cystitis without hematuria- Primary documented in this encounter Additional Health Concerns Assessment Noted Time PHQ-9 Depression Total Score: 3 11/01/19 25 11:27 AM EST documented as of this encounter Care Teams Rotary Shear Cutter Relationship Specialty Start Date End Date Nneka Velazquez NP [address] [place] [address] PCP - General Family Medicine 07/02/24 documented as of this encounter
== END 2025-09-23 15:48 | disposition home or self-care (01) ==
LOC: HO.US 15:47
PROVIDERS: PCP Nurse Practitioner; Visit Provider Nurse Practitioner
DX: Z30.431 Encounter for routine checking of intrauterine contraceptive device (principal); R10.20 Pelvic and perineal pain unspecified side
CPT/HCPCS: 76856

== ENCOUNTER 2025-10-02 13:09 | Outpatient (REF) | payer MEDICAID, SELFPAY ==
--- NOTE | ~2025-10-02 | US_ITS ---
EXAMINATION: MM DIAGNOSTIC DIGITAL BREAST TOMOSYNTHESIS, BILATERAL Right Limited ultrasound. CLINICAL INFORMATION: Right breast palpable lump lower inner quadrant. COMPARISON: Mammography: Comparison is made with relevant prior exams. TECHNIQUE: Digital breast mammography with tomosynthesis is performed in both the craniocaudal and mediolateral oblique views along with computer-aided detection (CAD). FINDINGS: There are scattered areas of fibroglandular density. Left: There are no significant masses, abnormal calcifications, or other abnormalities. Right: BB palpable marker in the lower inner right breast posterior depth without underlying abnormal finding at the site of patient's palpable lump. No suspicious masses calcifications or other abnormal findings. Targeted color Doppler ultrasound scanning from 2-6 o'clock in the area of the patient's palpable lump demonstrates normal fibronodular breast tissue. There is no sonographic abnormal finding. Results are provided to the patient at time of visit by the technologist. US/US Breast RT Limited Mamm Only IMPRESSION: Left: Negative. Right: No mammographic or sonographic abnormal finding to account for the patient's right breast palpable lump. Recommend clinical evaluation and follow-up. ASSESSMENT: BI-RADS Category 1: Negative RECOMMENDATION: Mammo at 40 or earlier if clinically needed Clinical evaluation and follow-up. Electronically signed by: Colleen Culp DO 10/02/2025 02:06 PM [facility]
== END 2025-10-02 13:10 | disposition home or self-care (01) ==
LOC: HO.MAMMO 13:09
PROVIDERS: PCP Nurse Practitioner; Visit Provider Nurse Practitioner
DX: N63.14 Unspecified lump in the right breast, lower inner quadrant (principal); N63.12 Unspecified lump in the right breast, upper inner quadrant
CPT/HCPCS: 76642; 77062; 77066

== ENCOUNTER → 2025-10-02 13:30 | Outpatient (BNV) | payer MEDICAID, SELFPAY | PROVIDERS: PCP Nurse Practitioner; Visit Provider Internal Medicine | DX: R92.8 Other abnormal and inconclusive findings on diagnostic imaging of breast (principal) | CPT/HCPCS: 76642; 77062; 77066 ==